=== PATIENT | female | born 2000 | race Caucasian/White ===

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

== ENCOUNTER 2024-05-12 21:16 | Emergency (ER) | payer OTHER ==
--- OUTSIDE RECORDS SUMMARY | 2024-05-12 21:24 | XMS REPORT | Continuity of Care Document ---
Author Name Unknown Address [address] [facility] [address]. [address] [place] [address] [facility] Address [address] [facility] [place] [address] [place] [address] Care Team Providers Care Central Supply Nurse Name Role Phone Ovidio Schneider MD Primary Care Physician [phone] MARIE MELENDEZ Attending Clinician Unavailable MARIE MELENDEZ Attending Clinician Unavailable Piper Rodríguez Attending Clinician [phone] Ovidio Schneider MD Attending Clinician + Beatriz Chu MD Attending Clinician [phone] BEATRIZ CHU Attending Clinician UnavailBEATRIZ Rush Attending Clinician Unavailabl e RABIA PIMENTEL Attending Clinician Unavailable RABIA PIMENTEL Attending Clinician Unavailable Rabia Pimentel MD Attending Clinician [phone] OVIDIO SCHNEIDER Attending Clinician Unavailable Pola MARCIAL Attending Clinician Unavailable Clive PACPola Attending Clinician [phone] Nancy RING, Georgie Broderick Attending Clinician Unav ailable Gaby Malik PTA Attending Clinician Unavail able Beatriz Chu MD Attending Clinician +[phone] Ovidio Schneider MD Attending Clinician + 2, [facility] Attending Clinician Unavailable Mihir Galindo PT, Mckenna Attending Clinician Un available Romina Myers Attending Clinician +[phone] ROMINA SPANGLER Attending Clinician Unavailable YOUSUF SANCHEZ Attending Clinician Unavailab le Doctor Unassigned, [place] Attending Clinician U navailable Lab, [facility] I Attending Clinician Unavailab Luna Carlisle Attending Clinician [phone] LUNA VILLASENOR Attending Clinician Unavailable Elio GAONAP, Renetta Cervantes Attending Clinician + [phone] Piper Rodríguez Attending Clinician [phone] PIPER AVILES Attending Clinician Unavailabl e [place], [facility] Attending Clinician Unava ilable Mily ARCHIVES TECHNICIANLashaun Attending Clinician [phone] Mike Keys Attending Clinician [phone] Anahi Alexander Attending Clinician [phone] RABIA PIMENTEL Admitting Clinician Unavailable YOUSUF SANCHEZ Admitting Clinician Unavailab le Payers Payer Name Policy Type Policy Number Effective Date Expirati on Date Source [facility] [id number] Problems Condition Name Condition Details Condition Category Status Onset Date Resolution Date Last Treatment Date Treating Clinician Comments Source Spasm of thoracic back muscle Spasm of thoracic back muscle Disease Active 2022-03 00:00: 00 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 Chronic upper back pain Chronic upper back pain Disease Active 2022-03 00:00: 00 [facility] Family history of stress Family history of stress Disease Active 2022-03 00:00: 00 [facility] Generalize d anxiety disorder Generalize d anxiety disorder Disease Active 2022-03 00:00: 00 [facility] Acute pain of both shoulders Acute pain of both shoulders Disease Active 2022-03 00:00: 00 [facility] Idiopathic scoliosis of thoracolum bar region Idiopathic scoliosis of thoracolum bar region Disease Active 2022-03 00:00: 00 [facility] Musculoske letal pain Musculoske letal pain Disease Active 2022-03 00:00: 00 [facility] Situationa l anxiety Situationa l anxiety Disease Active 2022-03 00:00: 00 [facility] Psoriasis Psoriasis Disease Active 2019-03 00:00: 00 [facility] Functional heart murmur Functional heart murmur Disease Active 11-18 00:00: 00 [facility] Family history of cardiovasc ular disease Family history of cardiovasc ular disease Disease Active 11-18 00:00: 00 [facility] Acute pharyngiti s Acute pharyngiti s Disease Resolve d 12-08 00:00: 00 2020-02-04 00:00:00 2020-02-04 13:13:06 [facility] Acute serous otitis media Acute serous otitis media Disease Resolve d 12-08 00:00: 00 2020-02-04 00:00:00 2020-02-04 13:13:05 [facility] Acute bronchitis Acute bronchitis Disease Resolve d 12-08 00:00: 00 2020-02-04 00:00:00 2020-02-04 13:13:08 [facility] Other closed fractures of distal end of radius (alone) Other closed fractures of distal end of radius (alone) Disease Resolve d 05-16 00:00: 00 2012-09-03 00:00:00 2012-09-03 10:16:06 [facility] Allergies, Adverse Reactions, Alerts Allergy Name Allergy Type Status Severity Reaction(s) Onset Date Inactive Date Treating Clinician Comments Source NO KNOWN ALLERGIE S Drug Class Active [facility] No Known Drug Allergie s MA Active UNKNOWN [facility] Social History Social Habit Start Date Stop Date Quantity Comments Source History of tobacco use Passive smoker [facility] Sexual orientation [facility] Exposure to SARS-CoV-2 (event) Yes [facility] Alcoholic beverage intake 2023-12-09 00:00:00 2023-12-09 00:00:00 Current non-drinker of alcohol (finding) [facility] History of Social function 2023-12-04 00:00:00 2023-12-04 00:00:00 [facility] Alcohol intake 2023-01-25 00:00:00 2023-01-25 00:00:00 Current non-drinker of alcohol (finding) [facility] Tobacco use and exposure 2023-01-16 00:00:00 2023-01-16 00:00:00 Smokeless tobacco non-user [facility] Sex assigned at 2002 00:00:00 2000 00:00:00 [facility] Smoking Status Start Date Stop Date Source Never smoked tobacco [facility] Medications Ordered Medication Name Filled Medication Name Start Date Stop Date Current Medication? Ordering Clinician Indication Dosage Frequency Signature (SIG) Comments Components Source methylPREDN ISolone (MEDROL, ARMANDO,) 4 mg tablets 12-03 00:00: 00 Yes 84mg Take 21 tablets by mouth SEE-INSTRU CTIONS. follow package directions [facility] HYDROcodone -acetaminop hen (NORCO) 10-325 mg tablet 1 tablet 12-01 13:00: 00 12-01 12:04 :00 No 1{tbl} 1 tablet, Oral, ONCE NOW, 1 dose, On Fri12/02/23 at 0800, Routine [facility] ibuprofen 800 mg tablet 12-01 00:00: 00 Yes [id number] 800mg Take 1 tablet by mouth every 8 (eight) hours as needed for Pain (scale 4-6). [facility] ondansetron (ZOFRAN-ODT ) disintegrat ing tablet 4 mg 03-31 07:15: 00 03-31 06:09 :00 No 4mg 4 mg, Oral, ONCE, 1 dose, On Fri03/31/23 at 0115, Routine [facility] benzonatate (TESSALON PERLES) capsule 200 mg 03-31 06:15: 00 03-31 06:10 :00 No 200mg 200 mg, Oral, ONCE, 1 dose, On Fri03/31/23 at 0015, NATALY [facility] ondansetron 4 mg disintegrat ing tablet 03-31 00:00: 00 Yes [id number] 4mg Take 1 tablet by mouth every 8 (eight) hours as needed for Nausea and Vomiting (N/V). [facility] benzonatate 200 mg capsule 03-31 00:00: 00 Yes [id number] 200mg Take 1 capsule by mouth 3 (three) times daily as needed for Cough for up to [address] [facility] ibuprofen 600 mg tablet 03-31 00:00: 00 Yes [id number] 600mg Take 1 tablet by mouth every 6 (six) hours as needed for Pain (scale 4-6). [facility] XULANE 150-35 mcg/24 hr patch 2022-03 14:50: 29 Yes APPLY 1 PATCH BY TRANSDERMA L ROUTE ONCE WEEKLY FOR 3 WEEKS, REMOVE FOR [address] [facility] Diclofenac Sodium (VOLTAREN) 1 % gel 2022-03 00:00: 00 Yes [id number] Apply to area(s) 4 (four) times daily. Apply [address] [facility] lidocaine 5 % ointment 2022-03 00:00: 00 Yes [id number] Apply 2g to affected areas BID PRN [facility] methocarbam oL 500 mg tablet 2022-03 00:00: 00 Yes [id number] 500mg Take 1 tablet by mouth 4 (four) times daily as needed for Pain (scale 7-10) (Muscle Spasms). [facility] methocarbam oL (ROBAXIN) tablet 1,000 mg 2022-03 17:15: 00 01-15 17:57 :00 No 1000mg 1,000 mg, Oral, ONCE, 1 dose, On Fri01/15/23 at 1215, NATALY [facility] ibuprofen (IBU) tablet 600 mg 2022-03 17:15: 00 01-15 17:57 :00 No 600mg 600 mg, Oral, ONCE, 1 dose, On Fri01/15/23 at 1215, NATALY [facility] ibuprofen 600 mg tablet 2022-03 00:00: 00 Yes [id number] 600mg Take 1 tablet by mouth every 8 (eight) hours as needed for Pain (scale 4-6). [facility] methocarbam oL 750 mg tablet 2022-03 00:00: 00 01-22 00:00 :00 No [id number] 750mg Take 1 tablet by mouth every 6 (six) hours as needed for Pain (scale 7-10). [facility] triamcinolo ne 0.025 % cream 2019-03 00:00: 00 Yes [id number] Apply to area(s) 2 (two) times daily. [facility] salicylic acid 2 % Sham 2019-03 00:00: 00 Yes [id number] 1[oz_av ] Apply 1 oz to area(s) daily. Wash hair daily with shampoo and massage into scalp. [facility] cetirizine 5 mg tablet 10-08 00:00: 00 11-08 04:59 :00 No [id number] 5mg Take 1 tablet by mouth at bedtime as needed for Allergies for up to 30 days. [facility] No known medications No Un zachary ity [facility] No known [facility] No Un zachary ity [facility] No known medications No Un zachary ity [facility] No known medications No Un zachary ity [facility] No known medications No Un zachary ity [facility] No known medications [facility] Immunizations Ordered Immunization Name Filled Immunization Name Date Status Comments Source Influenza Virus Vaccine Quad IM, Preserv and ABX Free 6 MO-64 YRS (FLUCELVAX) 2023-01-22 00:00:00 Completed [facility] HPV9 2020-02-04 00:00:00 Completed [facility] Influenza Virus Vaccine Quad .5 mL IM 6+ MO 2020-02-04 00:00:00 Completed [facility] HPV9 2020-02-04 00:00:00 Completed [facility] Influenza Virus Vaccine Quad .5 mL IM 6+ MO 2020-02-04 00:00:00 Completed [facility] HPV9 2020-02-04 00:00:00 Completed [facility] Influenza Virus Vaccine Quad .5 mL IM 6+ MO (FLUZONE/FLULAVAL/FL UARIX) 2020-02-04 00:00:00 Completed HPV9 2020-02-04 00:00:00 Completed [facility] Influenza Virus Vaccine Quad .5 mL IM 6+ MO 2020-02-04 00:00:00 Completed [facility] HPV9 2020-02-04 00:00:00 Completed [facility] Influenza Virus Vaccine Quad .5 mL IM 6+ MO 2020-02-04 00:00:00 Completed [facility] HPV9 2020-02-04 00:00:00 Completed [facility] Influenza Virus Vaccine Quad .5 mL IM 6+ MO 2020-02-04 00:00:00 Completed [facility] HPV9 2020-02-04 00:00:00 Completed [facility] Influenza Virus Vaccine Quad .5 mL IM 6+ MO 2020-02-04 00:00:00 Completed [facility] HPV9 2020-02-04 00:00:00 Completed [facility] Influenza Virus Vaccine Quad .5 mL IM 6+ MO 2020-02-04 00:00:00 Completed [facility] Influenza Virus Vaccine Quad .5 mL IM 6+ MO 2019-02-08 00:00:00 Completed [facility] Influenza Virus Vaccine Quad .5 mL IM 6+ MO 2019-02-08 00:00:00 Completed [facility] Influenza Virus Vaccine Quad .5 mL IM 6+ MO (FLUZONE/FLULAVAL/FL UARIX) 2019-02-08 00:00:00 Completed Influenza Virus Vaccine Quad .5 mL IM 6+ MO 2019-02-08 00:00:00 Completed [facility] Influenza Virus Vaccine Quad .5 mL IM 6+ MO 2019-02-08 00:00:00 Completed [facility] Influenza Virus Vaccine Quad .5 mL IM 6+ MO 2019-02-08 00:00:00 Completed [facility] Influenza Virus Vaccine Quad .5 mL IM 6+ MO 2019-02-08 00:00:00 Completed [facility] Influenza Virus Vaccine Quad .5 mL IM 6+ MO 2019-02-08 00:00:00 Completed [facility] Influenza Virus Vaccine Quad .5 mL IM 6+ MO 2019-02-08 00:00:00 Completed [facility] Influenza Virus Vaccine Quad .5 mL IM 6+ MO 2019-02-08 00:00:00 Completed [facility] Meningococcal B, OMV 2018-11-20 00:00:00 Completed [facility] HPV9 2018-11-20 00:00:00 Completed [facility] Meningococcal B, OMV 2018-11-20 00:00:00 Completed [facility] HPV9 2018-11-20 00:00:00 Completed [facility] Meningococcal B, OMV 2018-11-20 00:00:00 Completed HPV9 2018-11-20 00:00:00 Completed Meningococcal B, OMV 2018-11-20 00:00:00 Completed [facility] HPV9 2018-11-20 00:00:00 Completed [facility] Meningococcal B, OMV 2018-11-20 00:00:00 Completed [facility] HPV9 2018-11-20 00:00:00 Completed [facility] Meningococcal B, OMV 2018-11-20 00:00:00 Completed [facility] HPV9 2018-11-20 00:00:00 Completed [facility] Meningococcal B, OMV 2018-11-20 00:00:00 Completed [facility] HPV9 2018-11-20 00:00:00 Completed [facility] Meningococcal B, OMV 2018-11-20 00:00:00 Completed [facility] HPV9 2018-11-20 00:00:00 Completed [facility] Meningococcal B, OMV 2018-11-20 00:00:00 Completed [facility] HPV9 2018-11-20 00:00:00 Completed [facility] Meningococcal B, OMV 2018-11-20 00:00:00 Completed [facility] HPV9 2018-11-20 00:00:00 Completed [facility] Meningococcal B, OMV 2018-11-20 00:00:00 Completed [facility] HPV9 2018-11-20 00:00:00 Completed [facility] Meningococcal B, OMV 2018-10-12 00:00:00 Completed [facility] Meningococcal Polysaccharide (groups A, C, Y and W-135) conjugate vaccine (MCV4P) 2018-10-12 00:00:00 Completed [facility] HPV9 2018-10-12 00:00:00 Completed [facility] Meningococcal B, OMV 2018-10-12 00:00:00 Completed [facility] Meningococcal Polysaccharide (groups A, C, Y and W-135) conjugate vaccine (MCV4P) 2018-10-12 00:00:00 Completed [facility] HPV9 2018-10-12 00:00:00 Completed [facility] Meningococcal B, OMV 2018-10-12 00:00:00 Completed Meningococcal Polysaccharide (groups A, C, Y and W-135) conjugate vaccine (MCV4P) 2018-10-12 00:00:00 Completed HPV9 2018-10-12 00:00:00 Completed Meningococcal B, OMV 2018-10-12 00:00:00 Completed [facility] Meningococcal Polysaccharide (groups A, C, Y and W-135) conjugate vaccine (MCV4P) 2018-10-12 00:00:00 Completed [facility] HPV9 2018-10-12 00:00:00 Completed [facility] Meningococcal B, OMV 2018-10-12 00:00:00 Completed [facility] Meningococcal Polysaccharide (groups A, C, Y and W-135) conjugate vaccine (MCV4P) 2018-10-12 00:00:00 Completed [facility] HPV9 2018-10-12 00:00:00 Completed [facility] Meningococcal B, OMV 2018-10-12 00:00:00 Completed [facility] Meningococcal Polysaccharide (groups A, C, Y and W-135) conjugate vaccine (MCV4P) 2018-10-12 00:00:00 Completed [facility] HPV9 2018-10-12 00:00:00 Completed [facility] Meningococcal B, OMV 2018-10-12 00:00:00 Completed [facility] Meningococcal Polysaccharide (groups A, C, Y and W-135) conjugate vaccine (MCV4P) 2018-10-12 00:00:00 Completed [facility] HPV9 2018-10-12 00:00:00 Completed [facility] Meningococcal B, OMV 2018-10-12 00:00:00 Completed [facility] Meningococcal Polysaccharide (groups A, C, Y and W-135) conjugate vaccine (MCV4P) 2018-10-12 00:00:00 Completed [facility] HPV9 2018-10-12 00:00:00 Completed [facility] Meningococcal B, OMV 2018-10-12 00:00:00 Completed [facility] Meningococcal Polysaccharide (groups A, C, Y and W-135) conjugate vaccine (MCV4P) 2018-10-12 00:00:00 Completed [facility] HPV9 2018-10-12 00:00:00 Completed [facility] Meningococcal B, OMV 2018-10-12 00:00:00 Completed [facility] Meningococcal Polysaccharide (groups A, C, Y and W-135) conjugate vaccine (MCV4P) 2018-10-12 00:00:00 Completed [facility] HPV9 2018-10-12 00:00:00 Completed [facility] Meningococcal B, OMV 2018-10-12 00:00:00 Completed [facility] Meningococcal Polysaccharide (groups A, C, Y and W-135) conjugate vaccine (MCV4P) 2018-10-12 00:00:00 Completed [facility] HPV9 2018-10-12 00:00:00 Completed [facility] Meningococcal B, OMV 2018-10-12 00:00:00 Completed [facility] Meningococcal Polysaccharide (groups A, C, Y and W-135) conjugate vaccine (MCV4P) 2018-10-12 00:00:00 Completed [facility] HPV9 2018-10-12 00:00:00 Completed [facility] Meningococcal B, OMV 2018-10-12 00:00:00 Completed [facility] Meningococcal Polysaccharide (groups A, C, Y and W-135) conjugate vaccine (MCV4P) 2018-10-12 00:00:00 Completed [facility] HPV9 2018-10-12 00:00:00 Completed [facility] HEPATITIS A 2018-03-24 00:00:00 Completed [facility] Meningococcal Vaccine 2018-03-24 00:00:00 Completed [facility] HEPATITIS A 2018-03-24 00:00:00 Completed [facility] Meningococcal Vaccine 2018-03-24 00:00:00 Completed [facility] HEPATITIS A 2018-03-24 00:00:00 Completed [facility] Meningococcal Vaccine 2018-03-24 00:00:00 Completed [facility] HEPATITIS A 2018-03-24 00:00:00 Completed [facility] Meningococcal Vaccine 2018-03-24 00:00:00 Completed [facility] HEPATITIS A 2018-03-24 00:00:00 Completed [facility] Meningococcal Vaccine 2018-03-24 00:00:00 Completed HEPATITIS A 2018-03-24 00:00:00 Completed [facility] Meningococcal Vaccine 2018-03-24 00:00:00 Completed [facility] HEPATITIS A 2018-03-24 00:00:00 Completed [facility] Meningococcal Vaccine 2018-03-24 00:00:00 Completed [facility] HEPATITIS A 2018-03-24 00:00:00 Completed [facility] Meningococcal Vaccine 2018-03-24 00:00:00 Completed [facility] HEPATITIS A 2018-03-24 00:00:00 Completed [facility] Meningococcal Vaccine 2018-03-24 00:00:00 Completed [facility] HEPATITIS A 2018-03-24 00:00:00 Completed [facility] Meningococcal Vaccine 2018-03-24 00:00:00 Completed [facility] HEPATITIS A 2018-03-24 00:00:00 Completed [facility] Meningococcal Vaccine 2018-03-24 00:00:00 Completed [facility] HEPATITIS A 2018-03-24 00:00:00 Completed [facility] Meningococcal Vaccine 2018-03-24 00:00:00 Completed [facility] HEPATITIS A 2018-03-24 00:00:00 Completed [facility] Meningococcal Vaccine 2018-03-24 00:00:00 Completed [facility] HEPATITIS A 2018-03-24 00:00:00 Completed [facility] Meningococcal Vaccine 2018-03-24 00:00:00 Completed [facility] HEPATITIS A 2018-03-24 00:00:00 Completed [facility] Meningococcal Vaccine 2018-03-24 00:00:00 Completed [facility] HEPATITIS A 2018-03-24 00:00:00 Completed [facility] Meningococcal Vaccine 2018-03-24 00:00:00 Completed [facility] HEPATITIS A 2018-03-24 00:00:00 Completed [facility] Meningococcal Vaccine 2018-03-24 00:00:00 Completed [facility] TDAP (ADACEL) VACCINE 2014-11-10 00:00:00 Completed [facility] TDAP (ADACEL) VACCINE 2014-11-10 00:00:00 Completed [facility] TDAP (ADACEL) VACCINE 2014-11-10 00:00:00 Completed [facility] TDAP (ADACEL) VACCINE 2014-11-10 00:00:00 Completed [facility] TDAP (ADACEL) VACCINE 2014-11-10 00:00:00 Completed [facility] TDAP (ADACEL) VACCINE 2014-11-10 00:00:00 Completed [facility] TDAP (ADACEL) VACCINE 2014-11-10 00:00:00 Completed [facility] TDAP (ADACEL) VACCINE 2014-11-10 00:00:00 Completed [facility] TDAP (ADACEL) VACCINE 2014-11-10 00:00:00 Completed [facility] TDAP (ADACEL) VACCINE 2014-11-10 00:00:00 Completed [facility] TDAP (ADACEL) VACCINE 2014-11-10 00:00:00 Completed [facility] TDAP (ADACEL) VACCINE 2014-11-10 00:00:00 Completed [facility] TDAP (ADACEL) VACCINE 2014-11-10 00:00:00 Completed [facility] TDAP (ADACEL) VACCINE 2014-11-10 00:00:00 Completed [facility] TDAP (ADACEL) VACCINE 2014-11-10 00:00:00 Completed [facility] TDAP (ADACEL) VACCINE 2014-11-10 00:00:00 Completed [facility] TDAP (ADACEL) VACCINE 2014-11-10 00:00:00 Completed [facility] Influenza Virus Vaccine - Whole 2010-05-04 00:00:00 Completed [facility] Influenza Virus Vaccine - Whole 2010-05-04 00:00:00 Completed [facility] Influenza Virus Vaccine - Whole 2010-05-04 00:00:00 Completed [facility] Influenza Virus Vaccine - Whole 2010-05-04 00:00:00 Completed [facility] Influenza Virus Vaccine - Whole 2010-05-04 00:00:00 Completed [facility] Influenza Virus Vaccine - Whole 2010-05-04 00:00:00 Completed [facility] Influenza Virus Vaccine - Whole 2010-05-04 00:00:00 Completed [facility] Influenza Virus Vaccine - Whole 2010-05-04 00:00:00 Completed [facility] Influenza Virus Vaccine - Whole 2010-05-04 00:00:00 Completed [facility] Influenza Virus Vaccine - Whole 2010-05-04 00:00:00 Completed [facility] Influenza Virus Vaccine - Whole 2010-05-04 00:00:00 Completed [facility] Influenza Virus Vaccine - Whole 2010-05-04 00:00:00 Completed [facility] Influenza Virus Vaccine - Whole 2010-05-04 00:00:00 Completed [facility] Influenza Virus Vaccine - Whole 2010-05-04 00:00:00 Completed [facility] Influenza Virus Vaccine - Whole 2010-05-04 00:00:00 Completed [facility] Influenza Virus Vaccine - Whole 2010-05-04 00:00:00 Completed [facility] Influenza Virus Vaccine - Whole 2010-04-05 00:00:00 Completed [facility] Influenza Virus Vaccine - Whole 2010-04-05 00:00:00 Completed [facility] Influenza Virus Vaccine - Whole 2010-04-05 00:00:00 Completed [facility] Influenza Virus Vaccine - Whole 2010-04-05 00:00:00 Completed [facility] Influenza Virus Vaccine - Whole 2010-04-05 00:00:00 Completed [facility] Influenza Virus Vaccine - Whole 2010-04-05 00:00:00 Completed [facility] Influenza Virus Vaccine - Whole 2010-04-05 00:00:00 Completed [facility] Influenza Virus Vaccine - Whole 2010-04-05 00:00:00 Completed [facility] Influenza Virus Vaccine - Whole 2010-04-05 00:00:00 Completed [facility] Influenza Virus Vaccine - Whole 2010-04-05 00:00:00 Completed [facility] Influenza Virus Vaccine - Whole 2010-04-05 00:00:00 Completed [facility] Influenza Virus Vaccine - Whole 2010-04-05 00:00:00 Completed [facility] Influenza Virus Vaccine - Whole 2010-04-05 00:00:00 Completed [facility] Influenza Virus Vaccine - Whole 2010-04-05 00:00:00 Completed [facility] Influenza Virus Vaccine - Whole 2010-04-05 00:00:00 Completed [facility] Influenza Virus Vaccine - Whole 2010-04-05 00:00:00 Completed [facility] Influenza Virus Vaccine - Whole 2010-04-05 00:00:00 Completed [facility] Influenza Virus Vaccine Quad Nasal 2009-02-02 00:00:00 Completed [facility] Influenza Virus Vaccine Quad Nasal 2009-02-02 00:00:00 Completed [facility] Influenza Virus Vaccine Quad Nasal 2009-02-02 00:00:00 Completed [facility] Influenza Virus Vaccine Quad Nasal 2009-02-02 00:00:00 Completed [facility] Influenza Virus Vaccine Quad Nasal (Flumist) 2009-02-02 00:00:00 Completed Influenza Virus Vaccine Quad Nasal 2009-02-02 00:00:00 Completed [facility] Influenza Virus Vaccine Quad Nasal 2009-02-02 00:00:00 Completed [facility] Influenza Virus Vaccine Quad Nasal 2009-02-02 00:00:00 Completed [facility] Influenza Virus Vaccine Quad Nasal 2009-02-02 00:00:00 Completed [facility] Influenza Virus Vaccine Quad Nasal 2009-02-02 00:00:00 Completed [facility] Influenza Virus Vaccine Quad Nasal 2009-02-02 00:00:00 Completed [facility] Influenza Virus Vaccine Quad Nasal 2009-02-02 00:00:00 Completed [facility] Influenza Virus Vaccine Quad Nasal 2009-02-02 00:00:00 Completed [facility] Influenza Virus Vaccine Quad Nasal 2009-02-02 00:00:00 Completed [facility] Influenza Virus Vaccine Quad Nasal 2009-02-02 00:00:00 Completed [facility] Influenza Virus Vaccine Quad Nasal 2009-02-02 00:00:00 Completed [facility] Influenza Virus Vaccine Quad Nasal 2009-02-02 00:00:00 Completed [facility] MMR 2006-12-14 00:00:00 Completed [facility] HEPATITIS A 2006-12-14 00:00:00 Completed [facility] MMR 2006-12-14 00:00:00 Completed [facility] HEPATITIS A 2006-12-14 00:00:00 Completed [facility] MMR 2006-12-14 00:00:00 Completed [facility] HEPATITIS A 2006-12-14 00:00:00 Completed [facility] MMR 2006-12-14 00:00:00 Completed [facility] HEPATITIS A 2006-12-14 00:00:00 Completed [facility] MMR 2006-12-14 00:00:00 Completed [facility] HEPATITIS A 2006-12-14 00:00:00 Completed MMR 2006-12-14 00:00:00 Completed HEPATITIS A 2006-12-14 00:00:00 Completed [facility] MMR 2006-12-14 00:00:00 Completed [facility] HEPATITIS A 2006-12-14 00:00:00 Completed [facility] MMR 2006-12-14 00:00:00 Completed [facility] HEPATITIS A 2006-12-14 00:00:00 Completed [facility] MMR 2006-12-14 00:00:00 Completed [facility] HEPATITIS A 2006-12-14 00:00:00 Completed [facility] MMR 2006-12-14 00:00:00 Completed [facility] HEPATITIS A 2006-12-14 00:00:00 Completed [facility] MMR 2006-12-14 00:00:00 Completed [facility] HEPATITIS A 2006-12-14 00:00:00 Completed [facility] MMR 2006-12-14 00:00:00 Completed [facility] HEPATITIS A 2006-12-14 00:00:00 Completed [facility] MMR 2006-12-14 00:00:00 Completed [facility] HEPATITIS A 2006-12-14 00:00:00 Completed [facility] MMR 2006-12-14 00:00:00 Completed [facility] HEPATITIS A 2006-12-14 00:00:00 Completed [facility] MMR 2006-12-14 00:00:00 Completed [facility] HEPATITIS A 2006-12-14 00:00:00 Completed [facility] MMR 2006-12-14 00:00:00 Completed [facility] HEPATITIS A 2006-12-14 00:00:00 Completed [facility] MMR 2006-12-14 00:00:00 Completed [facility] HEPATITIS A 2006-12-14 00:00:00 Completed [facility] Varicella (varivax)(chicken pox) 2006-11-07 00:00:00 Completed [facility] DTAP 2006-11-07 00:00:00 Completed [facility] Varicella (varivax)(chicken pox) 2006-11-07 00:00:00 Completed [facility] DTAP 2006-11-07 00:00:00 Completed [facility] Varicella (varivax)(chicken pox) 2006-11-07 00:00:00 Completed [facility] DTAP 2006-11-07 00:00:00 Completed [facility] Varicella (varivax)(chicken pox) 2006-11-07 [facility]:00 Completed Varicella (varivax)(chicken pox) 2006-11-07 00:00:00 Completed [facility] Varicella (varivax)(chicken pox) 2006-11-07 00:00:[facility]:00:00 Completed [facility] Varicella (varivax)(chicken pox) 2006-11-07 00:00:00 Completed [facility] DTAP 2006-11-07 00:00:00 [facility]:00:00 Completed [facility] Varicella (varivax)(chicken pox) 2006-11-07 00:00:[facility]:00:00 Completed [facility] Varicella (varivax)(chicken pox) 2006-11-07 00:00:00 Completed [facility] Varicella (varivax)(chicken pox) 2006-11-07 00:00:00 Completed [facility] DTAP 2006-11-07 00:00:00 Completed [facility] Varicella (varivax)(chicken pox) 2006-11-07 00:00:00 Completed [facility] DTAP 2006-11-07 00:00:00 Completed [facility] Varicella (varivax)(chicken pox) 2006-11-07 00:00:[facility]:00 Completed [facility] Varicella (varivax)(chicken pox) 2006-11-07 00:00:00 Completed [facility] DTAP 2006-11-07 00:00:00 Completed [facility] Varicella (varivax)(chicken pox) 2006-11-07 00:00:00 Completed [facility] DTAP 2006-11-07 00:00:00 Completed [facility] Varicella (varivax)(chicken pox) 2006-11-07 00:00:00 Completed [facility] DTAP 2006-11-07 00:00:00 Completed [facility] Varicella (varivax)(chicken pox) 2006-11-07 00:00:00 Completed [facility] DTAP 2006-11-07 00:00:00 Completed [facility] Varicella (varivax)(chicken pox) 2006-11-07 00:00:00 Completed [facility] DTAP 2006-11-07 00:00:00 Completed [facility] Pneumococcal 7 Conjugate, PCV7 (Prevnar7) 2006-04-15 00:00:00 Completed [facility] Polio (IPV/OPV) 2006-04-15 00:00:00 Completed [facility] Pneumococcal 13 Conjugate, PCV13 (Prevnar 13) 2006-04-15 00:00:00 Completed [facility] Pneumococcal 7 Conjugate, PCV7 (Prevnar7) 2006-04-15 00:00:00 Completed [facility] Polio (IPV/OPV) 2006-04-15 00:00:00 Completed [facility] Pneumococcal 13 Conjugate, PCV13 (Prevnar 13) 2006-04-15 00:00:00 Completed [facility] Pneumococcal 7 Conjugate, PCV7 (Prevnar7) 2006-04-15 00:00:00 Completed [facility] Polio (IPV/OPV) 2006-04-15 00:00:00 Completed [facility] Pneumococcal 13 Conjugate, PCV13 (Prevnar 13) 2006-04-15 00:00:00 Completed [facility] Pneumococcal 7 Conjugate, PCV7 (Prevnar7) 2006-04-15 00:00:00 Completed [facility] Polio (IPV/OPV) 2006-04-15 00:00:00 Completed [facility] Pneumococcal 13 Conjugate, PCV13 (Prevnar 13) 2006-04-15 00:00:00 Completed [facility] Pneumococcal 7 Conjugate, PCV7 (Prevnar7) 2006-04-15 00:00:00 Completed [facility] Polio (IPV/OPV) 2006-04-15 00:00:00 Completed [facility] Pneumococcal 7 Conjugate, PCV7 (Prevnar7) 2006-04-15 00:00:00 Completed [facility] Polio (IPV/OPV) 2006-04-15 00:00:00 Completed Pneumococcal 13 Conjugate, PCV13 (Prevnar 13) 2006-04-15 00:00:00 Completed Pneumococcal 13 Conjugate, PCV13 (Prevnar 13) 2006-04-15 00:00:00 Completed [facility] Pneumococcal 7 Conjugate, PCV7 (Prevnar7) 2006-04-15 00:00:00 Completed [facility] Polio (IPV/OPV) 2006-04-15 00:00:00 Completed [facility] Pneumococcal 13 Conjugate, PCV13 (Prevnar 13) 2006-04-15 00:00:00 Completed [facility] Pneumococcal 7 Conjugate, PCV7 (Prevnar7) 2006-04-15 00:00:00 Completed [facility] Polio (IPV/OPV) 2006-04-15 00:00:00 Completed [facility] Pneumococcal 13 Conjugate, PCV13 (Prevnar 13) 2006-04-15 00:00:00 Completed [facility] Pneumococcal 7 Conjugate, PCV7 (Prevnar7) 2006-04-15 00:00:00 Completed [facility] Polio (IPV/OPV) 2006-04-15 00:00:00 Completed [facility] Pneumococcal 13 Conjugate, PCV13 (Prevnar 13) 2006-04-15 00:00:00 Completed [facility] Pneumococcal 7 Conjugate, PCV7 (Prevnar7) 2006-04-15 00:00:00 Completed [facility] Polio (IPV/OPV) 2006-04-15 00:00:00 Completed [facility] Pneumococcal 7 Conjugate, PCV7 (Prevnar7) 2006-04-15 00:00:00 Completed [facility] Polio (IPV/OPV) 2006-04-15 00:00:00 Completed [facility] Pneumococcal 13 Conjugate, PCV13 (Prevnar 13) 2006-04-15 00:00:00 Completed [facility] Pneumococcal 13 Conjugate, PCV13 (Prevnar 13) 2006-04-15 00:00:00 Completed [facility] Pneumococcal 7 Conjugate, PCV7 (Prevnar7) 2006-04-15 00:00:00 Completed [facility] Polio (IPV/OPV) 2006-04-15 00:00:00 Completed [facility] Pneumococcal 13 Conjugate, PCV13 (Prevnar 13) 2006-04-15 00:00:00 Completed [facility] Pneumococcal 7 Conjugate, PCV7 (Prevnar7) 2006-04-15 00:00:00 Completed [facility] Polio (IPV/OPV) 2006-04-15 00:00:00 Completed [facility] Pneumococcal 13 Conjugate, PCV13 (Prevnar 13) 2006-04-15 00:00:00 Completed [facility] Pneumococcal 7 Conjugate, PCV7 (Prevnar7) 2006-04-15 00:00:00 Completed [facility] Polio (IPV/OPV) 2006-04-15 00:00:00 Completed [facility] Pneumococcal 13 Conjugate, PCV13 (Prevnar 13) 2006-04-15 00:00:00 Completed [facility] Pneumococcal 7 Conjugate, PCV7 (Prevnar7) 2006-04-15 00:00:00 Completed [facility] Polio (IPV/OPV) 2006-04-15 00:00:00 Completed [facility] Pneumococcal 13 Conjugate, PCV13 (Prevnar 13) 2006-04-15 00:00:00 Completed [facility] Pneumococcal 7 Conjugate, PCV7 (Prevnar7) 2006-04-15 00:00:00 Completed [facility] Polio (IPV/OPV) 2006-04-15 00:00:00 Completed [facility] Pneumococcal 13 Conjugate, PCV13 (Prevnar 13) 2006-04-15 00:00:00 Completed [facility] Pneumococcal 7 Conjugate, PCV7 (Prevnar7) 2006-04-15 00:00:00 Completed [facility] Polio (IPV/OPV) 2006-04-15 00:00:00 Completed [facility] Pneumococcal 13 Conjugate, PCV13 (Prevnar 13) 2006-04-15 00:00:00 Completed [facility] Pneumococcal 7 Conjugate, PCV7 (Prevnar7) 2005-02-16 00:00:00 Completed [facility] HEPATITIS A 2005-02-16 00:00:00 Completed [facility] Pneumococcal 7 Conjugate, PCV7 (Prevnar7) 2005-02-16 00:00:00 Completed [facility] HEPATITIS A 2005-02-16 00:00:00 Completed [facility] Pneumococcal 7 Conjugate, PCV7 (Prevnar7) 2005-02-16 00:00:00 Completed [facility] HEPATITIS A 2005-02-16 00:00:00 Completed [facility] Pneumococcal 7 Conjugate, PCV7 (Prevnar7) 2005-02-16 00:00:00 Completed [facility] HEPATITIS A 2005-02-16 00:00:00 Completed [facility] Pneumococcal 7 Conjugate, PCV7 (Prevnar7) 2005-02-16 00:00:00 Completed [facility] HEPATITIS A 2005-02-16 00:00:00 Completed Pneumococcal 7 Conjugate, PCV7 (Prevnar7) 2005-02-16 00:00:00 Completed HEPATITIS A 2005-02-16 00:00:00 Completed [facility] Pneumococcal 7 Conjugate, PCV7 (Prevnar7) 2005-02-16 00:00:00 Completed [facility] HEPATITIS A 2005-02-16 00:00:00 Completed [facility] Pneumococcal 7 Conjugate, PCV7 (Prevnar7) 2005-02-16 00:00:00 Completed [facility] HEPATITIS A 2005-02-16 00:00:00 Completed [facility] HEPATITIS A 2005-02-16 00:00:00 Completed [facility] Pneumococcal 7 Conjugate, PCV7 (Prevnar7) 2005-02-16 00:00:00 Completed [facility] Pneumococcal 7 Conjugate, PCV7 (Prevnar7) 2005-02-16 00:00:00 Completed [facility] HEPATITIS A 2005-02-16 00:00:00 Completed [facility] Pneumococcal 7 Conjugate, PCV7 (Prevnar7) 2005-02-16 00:00:00 Completed [facility] HEPATITIS A 2005-02-16 00:00:00 Completed [facility] Pneumococcal 7 Conjugate, PCV7 (Prevnar7) 2005-02-16 00:00:00 Completed [facility] HEPATITIS A 2005-02-16 00:00:00 Completed [facility] Pneumococcal 7 Conjugate, PCV7 (Prevnar7) 2005-02-16 00:00:00 Completed [facility] HEPATITIS A 2005-02-16 00:00:00 Completed [facility] Pneumococcal 7 Conjugate, PCV7 (Prevnar7) 2005-02-16 00:00:00 Completed [facility] HEPATITIS A 2005-02-16 00:00:00 Completed [facility] Pneumococcal 7 Conjugate, PCV7 (Prevnar7) 2005-02-16 00:00:00 Completed [facility] HEPATITIS A 2005-02-16 00:00:00 Completed [facility] Pneumococcal 7 Conjugate, PCV7 (Prevnar7) 2005-02-16 00:00:00 Completed [facility] HEPATITIS A 2005-02-16 00:00:00 Completed [facility] Pneumococcal 7 Conjugate, PCV7 (Prevnar7) 2005-02-16 00:00:00 Completed [facility] HEPATITIS A 2005-02-16 00:00:00 Completed [facility] DTAP 2003-08-24 00:00:00 Completed [facility] HIB 4 Dose Schedule 2003-08-24 00:00:00 Completed [facility] DTAP 2003-08-24 00:00:00 Completed [facility] HIB 4 Dose Schedule 2003-08-24 00:00:00 Completed [facility] DTAP 2003-08-24 00:00:00 Completed [facility] HIB 4 Dose Schedule 2003-08-24 00:00:00 Completed [facility] DTAP 2003-08-24 00:00:00 Completed [facility] HIB 4 Dose Schedule 2003-08-24 00:00:00 Completed [facility] DTAP 2003-08-24 00:00:00 Completed HIB 4 Dose Schedule 2003-08-24 00:00:00 Completed DTAP 2003-08-24 00:00:00 Completed [facility] HIB 4 Dose Schedule 2003-08-24 00:00:00 Completed [facility] DTAP 2003-08-24 00:00:00 Completed [facility] DTAP 2003-08-24 00:00:00 Completed [facility] HIB 4 Dose Schedule 2003-08-24 00:00:00 Completed [facility] HIB 4 Dose Schedule 2003-08-24 00:00:00 Completed [facility] DTAP 2003-08-24 00:00:00 Completed [facility] HIB 4 Dose Schedule 2003-08-24 00:00:00 Completed [facility] DTAP 2003-08-24 00:00:00 Completed [facility] HIB 4 Dose Schedule 2003-08-24 00:00:00 Completed [facility] DTAP 2003-08-24 00:00:00 Completed [facility] HIB 4 Dose Schedule 2003-08-24 00:00:00 Completed [facility] DTAP 2003-08-24 00:00:00 Completed [facility] HIB 4 Dose Schedule 2003-08-24 00:00:00 Completed [facility] DTAP 2003-08-24 00:00:00 Completed [facility] HIB 4 Dose Schedule 2003-08-24 00:00:00 Completed [facility] DTAP 2003-08-24 00:00:00 Completed [facility] HIB 4 Dose Schedule 2003-08-24 00:00:00 Completed [facility] DTAP 2003-08-24 00:00:00 Completed [facility] HIB 4 Dose Schedule 2003-08-24 00:00:00 Completed [facility] DTAP 2003-08-24 00:00:00 Completed [facility] HIB 4 Dose Schedule 2003-08-24 00:00:00 Completed [facility] DTAP 2003-08-24 00:00:00 Completed [facility] HIB 4 Dose Schedule 2003-08-24 00:00:00 Completed [facility] MMR 2003-07-07 00:00:00 Completed [facility] Varicella (varivax)(chicken pox) 2003-07-07 00:00:00 Completed [facility] MMR 2003-07-07 00:00:00 Completed [facility] Varicella (varivax)(chicken pox) 2003-07-07 00:00:00 Completed [facility] MMR 2003-07-07 00:00:00 Completed [facility] Varicella (varivax)(chicken pox) 2003-07-07 00:00:00 Completed [facility] MMR 2003-07-07 00:00:00 Completed [facility] Varicella (varivax)(chicken pox) 2003-07-07 00:00:00 Completed [facility] MMR 2003-07-07 00:00:00 Completed [facility] MMR 2003-07-07 00:00:00 Completed Varicella (varivax)(chicken pox) 2003-07-07 00:00:00 Completed [facility] Varicella (varivax)(chicken pox) 2003-07-07 00:00:00 Completed MMR 2003-07-07 00:00:00 Completed [facility] Varicella (varivax)(chicken pox) 2003-07-07 00:00:00 Completed [facility] MMR 2003-07-07 00:00:00 Completed [facility] Varicella (varivax)(chicken pox) 2003-07-07 00:00:00 Completed [facility] MMR 2003-07-07 00:00:00 Completed [facility] 2003-07-07 00:00:00 Completed [facility] Varicella (varivax)(chicken pox) 2003-07-07 00:00:00 Completed [facility] Varicella (varivax)(chicken pox) 2003-07-07 00:00:00 Completed [facility] 2003-07-07 00:00:00 Completed [facility] Varicella (varivax)(chicken pox) 2003-07-07 00:00:00 Completed [facility] 2003-07-07 00:00:00 Completed [facility] Varicella (varivax)(chicken pox) 2003-07-07 00:00:00 Completed [facility] MMR 2003-07-07 00:00:00 Completed [facility] Varicella (varivax)(chicken pox) 2003-07-07 00:00:00 Completed [facility] MMR 2003-07-07 00:00:00 Completed [facility] Varicella (varivax)(chicken pox) 2003-07-07 00:00:00 Completed [facility] MMR 2003-07-07 00:00:00 Completed [facility] Varicella (varivax)(chicken pox) 2003-07-07 00:00:00 Completed [facility] 2003-07-07 00:00:00 Completed [facility] Varicella (varivax)(chicken pox) 2003-07-07 00:00:00 Completed [facility] MMR 2003-07-07 00:00:00 Completed [facility] Varicella (varivax)(chicken pox) 2003-07-07 00:00:00 Completed [facility] Pneumococcal 7 Conjugate, PCV7 (Prevnar7) 2003-01-04 00:00:00 Completed [facility] Pneumococcal 13 Conjugate, PCV13 (Prevnar 13) 2003-01-04 00:00:00 Completed [facility] HIB 4 Dose Schedule 2003-01-04 00:00:00 Completed [facility] Hep B, Adol or Pedi Dosage 2003-01-04 00:00:00 Completed [facility] Pneumococcal 7 Conjugate, PCV7 (Prevnar7) 2003-01-04 00:00:00 Completed [facility] Pneumococcal 13 Conjugate, PCV13 (Prevnar 13) 2003-01-04 00:00:00 Completed [facility] HIB 4 Dose Schedule 2003-01-04 00:00:00 Completed [facility] Hep B, Adol or Pedi Dosage 2003-01-04 00:00:00 Completed [facility] Pneumococcal 7 Conjugate, PCV7 (Prevnar7) 2003-01-04 00:00:00 Completed [facility] Pneumococcal 13 Conjugate, PCV13 (Prevnar 13) 2003-01-04 00:00:00 Completed [facility] HIB 4 Dose Schedule 2003-01-04 00:00:00 Completed [facility] Hep B, Adol or Pedi Dosage 2003-01-04 00:00:00 Completed [facility] Pneumococcal 7 Conjugate, PCV7 (Prevnar7) 2003-01-04 00:00:00 Completed [facility] Pneumococcal 13 Conjugate, PCV13 (Prevnar 13) 2003-01-04 00:00:00 Completed [facility] HIB 4 Dose Schedule 2003-01-04 00:00:00 Completed [facility] Hep B, Adol or Pedi Dosage 2003-01-04 00:00:00 Completed [facility] Pneumococcal 7 Conjugate, PCV7 (Prevnar7) 2003-01-04 00:00:00 Completed [facility] Pneumococcal 13 Conjugate, PCV13 (Prevnar 13) 2003-01-04 00:00:00 Completed [facility] HIB 4 Dose Schedule 2003-01-04 00:00:00 Completed [facility] Hep B, Adol or Pedi Dosage 2003-01-04 00:00:00 Completed [facility] Pneumococcal 7 Conjugate, PCV7 (Prevnar7) 2003-01-04 00:00:00 Completed [facility] HIB 4 Dose Schedule 2003-01-04 00:00:00 Completed [facility] Hep B, Adol or Pedi Dosage 2003-01-04 00:00:00 Completed [facility] Pneumococcal 7 Conjugate, PCV7 (Prevnar7) 2003-01-04 00:00:00 Completed [facility] Pneumococcal 13 Conjugate, PCV13 (Prevnar 13) 2003-01-04 00:00:00 Completed Pneumococcal 13 Conjugate, PCV13 (Prevnar 13) 2003-01-04 00:00:00 Completed [facility] HIB 4 Dose Schedule 2003-01-04 00:00:00 Completed [facility] Hep B, Adol or Pedi Dosage 2003-01-04 00:00:00 Completed [facility] Pneumococcal 7 Conjugate, PCV7 (Prevnar7) 2003-01-04 00:00:00 Completed [facility] Pneumococcal 13 Conjugate, PCV13 (Prevnar 13) 2003-01-04 00:00:00 Completed [facility] HIB 4 Dose Schedule 2003-01-04 00:00:00 Completed [facility] HIB 4 Dose Schedule 2003-01-04 00:00:00 Completed [facility] Hep B, Adol or Pedi Dosage 2003-01-04 00:00:00 Completed [facility] Pneumococcal 7 Conjugate, PCV7 (Prevnar7) 2003-01-04 00:00:00 Completed [facility] Pneumococcal 13 Conjugate, PCV13 (Prevnar 13) 2003-01-04 00:00:00 Completed [facility] Hep B, Adol or Pedi Dosage 2003-01-04 00:00:00 Completed [facility] HIB 4 Dose Schedule 2003-01-04 00:00:00 Completed [facility] Hep B, Adol or Pedi Dosage 2003-01-04 00:00:00 Completed [facility] Pneumococcal 7 Conjugate, PCV7 (Prevnar7) 2003-01-04 00:00:00 Completed [facility] Pneumococcal 7 Conjugate, PCV7 (Prevnar7) 2003-01-04 00:00:00 Completed [facility] Pneumococcal 13 Conjugate, PCV13 (Prevnar 13) 2003-01-04 00:00:00 Completed [facility] HIB 4 Dose Schedule 2003-01-04 00:00:00 Completed [facility] Hep B, Adol or Pedi Dosage 2003-01-04 00:00:00 Completed [facility] Pneumococcal 13 Conjugate, PCV13 (Prevnar 13) 2003-01-04 00:00:00 Completed [facility] Pneumococcal 7 Conjugate, PCV7 (Prevnar7) 2003-01-04 00:00:00 Completed [facility] Pneumococcal 13 Conjugate, PCV13 (Prevnar 13) 2003-01-04 00:00:00 Completed [facility] HIB 4 Dose Schedule 2003-01-04 00:00:00 Completed [facility] Hep B, Adol or Pedi Dosage 2003-01-04 00:00:00 Completed [facility] Pneumococcal 7 Conjugate, PCV7 (Prevnar7) 2003-01-04 00:00:00 Completed [facility] Pneumococcal 13 Conjugate, PCV13 (Prevnar 13) 2003-01-04 00:00:00 Completed [facility] HIB 4 Dose Schedule 2003-01-04 00:00:00 Completed [facility] Hep B, Adol or Pedi Dosage 2003-01-04 00:00:00 Completed [facility] Pneumococcal 7 Conjugate, PCV7 (Prevnar7) 2003-01-04 00:00:00 Completed [facility] Pneumococcal 13 Conjugate, PCV13 (Prevnar 13) 2003-01-04 00:00:00 Completed [facility] HIB 4 Dose Schedule 2003-01-04 00:00:00 Completed [facility] Hep B, Adol or Pedi Dosage 2003-01-04 00:00:00 Completed [facility] Pneumococcal 7 Conjugate, PCV7 (Prevnar7) 2003-01-04 00:00:00 Completed [facility] Pneumococcal 13 Conjugate, PCV13 (Prevnar 13) 2003-01-04 00:00:00 Completed [facility] HIB 4 Dose Schedule 2003-01-04 00:00:00 Completed [facility] Hep B, Adol or Pedi Dosage 2003-01-04 00:00:00 Completed [facility] Pneumococcal 7 Conjugate, PCV7 (Prevnar7) 2003-01-04 00:00:00 Completed [facility] Pneumococcal 13 Conjugate, PCV13 (Prevnar 13) 2003-01-04 00:00:00 Completed [facility] HIB 4 Dose Schedule 2003-01-04 00:00:00 Completed [facility] Hep B, Adol or Pedi Dosage 2003-01-04 00:00:00 Completed [facility] Pneumococcal 7 Conjugate, PCV7 (Prevnar7) 2003-01-04 00:00:00 Completed [facility] Pneumococcal 13 Conjugate, PCV13 (Prevnar 13) 2003-01-04 00:00:00 Completed [facility] HIB 4 Dose Schedule 2003-01-04 00:00:00 Completed [facility] Hep B, Adol or Pedi Dosage 2003-01-04 00:00:00 Completed [facility] Pneumococcal 7 Conjugate, PCV7 (Prevnar7) 2002 00:00:00 Completed [facility] Polio (IPV/OPV) 2002 00:00:00 Completed [facility] Pneumococcal 13 Conjugate, PCV13 (Prevnar 13) 2002 00:00:00 Completed [facility] DTAP 2002 00:00:00 Completed [facility] HIB 4 Dose Schedule 2002 00:00:00 Completed [facility] Hep B, Adol or Pedi Dosage 2002 00:00:00 Completed [facility] Pneumococcal 7 Conjugate, PCV7 (Prevnar7) 2002 00:00:00 Completed [facility] Polio (IPV/OPV) 2002 00:00:00 Completed [facility] Pneumococcal 13 Conjugate, PCV13 (Prevnar 13) 2002 00:00:00 Completed [facility] DTAP 2002 00:00:00 Completed [facility] HIB 4 Dose Schedule 2002 00:00:00 Completed [facility] Hep B, Adol or Pedi Dosage 2002 00:00:00 Completed [facility] Pneumococcal 7 Conjugate, PCV7 (Prevnar7) 2002 00:00:00 Completed [facility] Polio (IPV/OPV) 2002 00:00:00 Completed [facility] Pneumococcal 13 Conjugate, PCV13 (Prevnar 13) 2002 00:00:00 Completed [facility] DTAP 2002 00:00:00 Completed [facility] HIB 4 Dose Schedule 2002 00:00:00 Completed [facility] Hep B, Adol or Pedi Dosage 2002 00:00:00 Completed [facility] Pneumococcal 7 Conjugate, PCV7 (Prevnar7) 2002 00:00:00 Completed [facility] Polio (IPV/OPV) 2002 00:00:00 Completed [facility] Pneumococcal 13 Conjugate, PCV13 (Prevnar 13) 2002 00:00:00 Completed [facility] DTAP 2002 00:00:00 Completed [facility] HIB 4 Dose Schedule 2002 00:00:00 Completed [facility] Hep B, Adol or Pedi Dosage 2002 00:00:00 Completed [facility] Pneumococcal 7 Conjugate, PCV7 (Prevnar7) 2002 00:00:00 Completed [facility] Polio (IPV/OPV) 2002 00:00:00 Completed [facility] DTAP 2002 00:00:00 Completed HIB 4 Dose Schedule 2002 00:00:00 Completed [facility] Hep B, Adol or Pedi Dosage 2002 00:00:00 Completed [facility] Pneumococcal 7 Conjugate, PCV7 (Prevnar7) 2002 00:00:00 Completed [facility] Polio (IPV/OPV) 2002 00:00:00 Completed Pneumococcal 13 Conjugate, PCV13 (Prevnar 13) 2002 00:00:00 Completed Pneumococcal 13 Conjugate, PCV13 (Prevnar 13) 2002 00:00:00 Completed [facility] DTAP 2002 00:00:00 Completed [facility] HIB 4 Dose Schedule 2002 00:00:00 Completed [facility] DTAP 2002 00:00:00 Completed [facility] Hep B, Adol or Pedi Dosage 2002 00:00:00 Completed [facility] Pneumococcal 7 Conjugate, PCV7 (Prevnar7) 2002 00:00:00 Completed [facility] Polio (IPV/OPV) 2002 00:00:00 Completed [facility] Pneumococcal 13 Conjugate, PCV13 (Prevnar 13) 2002 00:00:00 Completed [facility] HIB 4 Dose Schedule 2002 00:00:00 Completed [facility] DTAP 2002 00:00:00 Completed [facility] HIB 4 Dose Schedule 2002 00:00:00 Completed [facility] Hep B, Adol or Pedi Dosage 2002 00:00:00 Completed [facility] Pneumococcal 7 Conjugate, PCV7 (Prevnar7) 2002 00:00:00 Completed [facility] Polio (IPV/OPV) 2002 00:00:00 Completed [facility] Pneumococcal 13 Conjugate, PCV13 (Prevnar 13) 2002 00:00:00 Completed [facility] Hep B, Adol or Pedi Dosage 2002 00:00:00 Completed [facility] DTAP 2002 00:00:00 Completed [facility] HIB 4 Dose Schedule 2002 00:00:00 Completed [facility] Pneumococcal 7 Conjugate, PCV7 (Prevnar7) 2002 00:00:00 Completed [facility] Hep B, Adol or Pedi Dosage 2002 00:00:00 Completed [facility] Pneumococcal 7 Conjugate, PCV7 (Prevnar7) 2002 00:00:00 Completed [facility] Polio (IPV/OPV) 2002 00:00:00 Completed [facility] Pneumococcal 13 Conjugate, PCV13 (Prevnar 13) 2002 00:00:00 Completed [facility] Polio (IPV/OPV) 2002 00:00:00 Completed [facility] DTAP 2002 00:00:00 Completed [facility] Pneumococcal 13 Conjugate, PCV13 (Prevnar 13) 2002 00:00:00 Completed [facility] HIB 4 Dose Schedule 2002 00:00:00 Completed [facility] Hep B, Adol or Pedi Dosage 2002 00:00:00 Completed [facility] Pneumococcal 7 Conjugate, PCV7 (Prevnar7) 2002 00:00:00 Completed [facility] Polio (IPV/OPV) 2002 00:00:00 Completed [facility] Pneumococcal 13 Conjugate, PCV13 (Prevnar 13) 2002 00:00:00 Completed [facility] DTAP 2002 00:00:00 Completed [facility] HIB 4 Dose Schedule 2002 00:00:00 Completed [facility] Hep B, Adol or Pedi Dosage 2002 00:00:00 Completed [facility] Pneumococcal 7 Conjugate, PCV7 (Prevnar7) 2002 00:00:00 Completed [facility] Polio (IPV/OPV) 2002 00:00:00 Completed [facility] Pneumococcal 13 Conjugate, PCV13 (Prevnar 13) 2002 00:00:00 Completed [facility] DTAP 2002 00:00:00 Completed [facility] HIB 4 Dose Schedule 2002 00:00:00 Completed [facility] Hep B, Adol or Pedi Dosage 2002 00:00:00 Completed [facility] Pneumococcal 7 Conjugate, PCV7 (Prevnar7) 2002 00:00:00 Completed [facility] Polio (IPV/OPV) 2002 00:00:00 Completed [facility] Pneumococcal 13 Conjugate, PCV13 (Prevnar 13) 2002 00:00:00 Completed [facility] DTAP 2002 00:00:00 Completed [facility] HIB 4 Dose Schedule 2002 00:00:00 Completed [facility] Hep B, Adol or Pedi Dosage 2002 00:00:00 Completed [facility] Pneumococcal 7 Conjugate, PCV7 (Prevnar7) 2002 00:00:00 Completed [facility] Polio (IPV/OPV) 2002 00:00:00 Completed [facility] Pneumococcal 13 Conjugate, PCV13 (Prevnar 13) 2002 00:00:00 Completed [facility] DTAP 2002 00:00:00 Completed [facility] HIB 4 Dose Schedule 2002 00:00:00 Completed [facility] Hep B, Adol or Pedi Dosage 2002 00:00:00 Completed [facility] Pneumococcal 7 Conjugate, PCV7 (Prevnar7) 2002 00:00:00 Completed [facility] Polio (IPV/OPV) 2002 00:00:00 Completed [facility] Pneumococcal 13 Conjugate, PCV13 (Prevnar 13) 2002 00:00:00 Completed [facility] DTAP 2002 00:00:00 Completed [facility] HIB 4 Dose Schedule 2002 00:00:00 Completed [facility] Hep B, Adol or Pedi Dosage 2002 00:00:00 Completed [facility] Pneumococcal 7 Conjugate, PCV7 (Prevnar7) 2002 00:00:00 Completed [facility] Polio (IPV/OPV) 2002 00:00:00 Completed [facility] Pneumococcal 13 Conjugate, PCV13 (Prevnar 13) 2002 00:00:00 Completed [facility] DTAP 2002 00:00:00 Completed [facility] HIB 4 Dose Schedule 2002 00:00:00 Completed [facility] Hep B, Adol or Pedi Dosage 2002 00:00:00 Completed [facility] Pneumococcal 7 Conjugate, PCV7 (Prevnar7) 2002 00:00:00 Completed [facility] Polio (IPV/OPV) 2002 00:00:00 Completed [facility] Pneumococcal 13 Conjugate, PCV13 (Prevnar 13) 2002 00:00:00 Completed [facility] DTAP 2002 00:00:00 Completed [facility] HIB 4 Dose Schedule 2002 00:00:00 Completed [facility] Hep B, Adol or Pedi Dosage 2002 00:00:00 Completed [facility] Polio (IPV/OPV) 2002 00:00:00 Completed [facility] Hep B, Adol or Pedi Dosage 2002 00:00:00 Completed [facility] DTAP 2002 00:00:00 Completed [facility] Polio (IPV/OPV) 2002 00:00:00 Completed [facility] Hep B, Adol or Pedi Dosage 2002 00:00:00 Completed [facility] DTAP 2002 00:00:00 Completed [facility] Polio (IPV/OPV) 2002 00:00:00 Completed [facility] Hep B, Adol or Pedi Dosage 2002 00:00:00 Completed [facility] DTAP 2002 00:00:00 Completed [facility] Polio (IPV/OPV) 2002 00:00:00 Completed [facility] Hep B, Adol or Pedi Dosage 2002 00:00:00 Completed [facility] DTAP 2002 00:00:00 Completed [facility] Polio (IPV/OPV) 2002 00:00:00 Completed [facility] DTAP 2002 00:00:00 Completed Polio (IPV/OPV) 2002 00:00:00 Completed Hep B, Adol or Pedi Dosage 2002 00:00:00 Completed [facility] Hep B, Adol or Pedi Dosage 2002 00:00:00 Completed [facility] DTAP 2002 00:00:00 Completed [facility] DTAP 2002 00:00:00 Completed [facility] Polio (IPV/OPV) 2002 00:00:00 Completed [facility] Hep B, Adol or Pedi Dosage 2002 00:00:00 Completed [facility] DTAP 2002 00:00:00 Completed [facility] Polio (IPV/OPV) 2002 00:00:00 Completed [facility] Hep B, Adol or Pedi Dosage 2002 00:00:00 Completed [facility] DTAP 2002 00:00:00 Completed [facility] Polio (IPV/OPV) 2002 00:00:00 Completed [facility] Hep B, Adol or Pedi Dosage 2002 00:00:00 Completed [facility] Polio (IPV/OPV) 2002 00:00:00 Completed [facility] Hep B, Adol or Pedi Dosage 2002 00:00:00 Completed [facility] DTAP 2002 00:00:00 Completed [facility] Polio (IPV/OPV) 2002 00:00:00 Completed [facility] Hep B, Adol or Pedi Dosage 2002 00:00:00 Completed [facility] DTAP 2002 00:00:00 Completed [facility] Polio (IPV/OPV) 2002 00:00:00 Completed [facility] Hep B, Adol or Pedi Dosage 2002 00:00:00 Completed [facility] DTAP 2002 00:00:00 Completed [facility] Polio (IPV/OPV) 2002 00:00:00 Completed [facility] Hep B, Adol or Pedi Dosage 2002 00:00:00 Completed [facility] DTAP 2002 00:00:00 Completed [facility] Polio (IPV/OPV) 2002 00:00:00 Completed [facility] Hep B, Adol or Pedi Dosage 2002 00:00:00 Completed [facility] DTAP 2002 00:00:00 Completed [facility] Polio (IPV/OPV) 2002 00:00:00 Completed [facility] Hep B, Adol or Pedi Dosage 2002 00:00:00 Completed [facility] DTAP 2002 00:00:00 Completed [facility] Polio (IPV/OPV) 2002 00:00:00 Completed [facility] Hep B, Adol or Pedi Dosage 2002 00:00:00 Completed [facility] DTAP 2002 00:00:00 Completed [facility] Polio (IPV/OPV) 2002 00:00:00 Completed [facility] Hep B, Adol or Pedi Dosage 2002 00:00:00 Completed [facility] DTAP 2002 00:00:00 Completed [facility] Polio (IPV/OPV) 2002 00:00:00 Completed [facility] DTAP 2002 00:00:00 Completed [facility] HIB 4 Dose Schedule 2002 00:00:00 Completed [facility] Polio (IPV/OPV) 2002 00:00:00 Completed [facility] DTAP 2002 00:00:00 Completed [facility] HIB 4 Dose Schedule 2002 00:00:00 Completed [facility] Polio (IPV/OPV) 2002 00:00:00 Completed [facility] DTAP 2002 00:00:00 Completed [facility] HIB 4 Dose Schedule 2002 00:00:00 Completed [facility] Polio (IPV/OPV) 2002 00:00:00 Completed [facility] DTAP 2002 00:00:00 Completed [facility] HIB 4 Dose Schedule 2002 00:00:00 Completed [facility] Polio (IPV/OPV) 2002 00:00:00 Completed [facility] DTAP 2002 00:00:00 Completed [facility] HIB 4 Dose Schedule 2002 00:00:00 Completed [facility] Polio (IPV/OPV) 2002 00:00:00 Completed DTAP 2002 00:00:00 Completed [facility] DTAP 2002 00:00:00 Completed [facility] HIB 4 Dose Schedule 2002 00:00:00 Completed [facility] Polio (IPV/OPV) 2002 00:00:00 Completed [facility] HIB 4 Dose Schedule 2002 00:00:00 Completed [facility] DTAP 2002 00:00:00 Completed [facility] HIB 4 Dose Schedule 2002 00:00:00 Completed [facility] Polio (IPV/OPV) 2002 00:00:00 Completed [facility] DTAP 2002 00:00:00 Completed [facility] HIB 4 Dose Schedule 2002 00:00:00 Completed [facility] Polio (IPV/OPV) 2002 00:00:00 Completed [facility] Polio (IPV/OPV) 2002 00:00:00 Completed [facility] DTAP 2002 00:00:00 Completed [facility] HIB 4 Dose Schedule 2002 00:00:00 Completed [facility] Polio (IPV/OPV) 2002 00:00:00 Completed [facility] DTAP 2002 00:00:00 Completed [facility] HIB 4 Dose Schedule 2002 00:00:00 Completed [facility] Polio (IPV/OPV) 2002 00:00:00 Completed [facility] DTAP 2002 00:00:00 Completed [facility] HIB 4 Dose Schedule 2002 00:00:00 Completed [facility] Polio (IPV/OPV) 2002 00:00:00 Completed [facility] DTAP 2002 00:00:00 Completed [facility] HIB 4 Dose Schedule 2002 00:00:00 Completed [facility] Polio (IPV/OPV) 2002 00:00:00 Completed [facility] DTAP 2002 00:00:00 Completed [facility] HIB 4 Dose Schedule 2002 00:00:00 Completed [facility] Polio (IPV/OPV) 2002 00:00:00 Completed [facility] DTAP 2002 00:00:00 Completed [facility] HIB 4 Dose Schedule 2002 00:00:00 Completed [facility] Polio (IPV/OPV) 2002 00:00:00 Completed [facility] DTAP 2002 00:00:00 Completed [facility] HIB 4 Dose Schedule 2002 00:00:00 Completed [facility] Polio (IPV/OPV) 2002 00:00:00 Completed [facility] DTAP 2002 00:00:00 Completed [facility] HIB 4 Dose Schedule 2002 00:00:00 Completed [facility] Hep B, Adol or Pedi Dosage 2002 00:00:00 Completed [facility] Hep B, Adol or Pedi Dosage 2002 00:00:00 Completed [facility] Hep B, Adol or Pedi Dosage 2002 00:00:00 Completed [facility] Hep B, Adol or Pedi Dosage 2002 00:00:00 Completed [facility] Hep B, Adol or Pedi Dosage 2002 00:00:00 Completed Hep B, Adol or Pedi Dosage 2002 00:00:00 Completed [facility] Hep B, Adol or Pedi Dosage 2002 00:00:00 Completed [facility] Hep B, Adol or Pedi Dosage 2002 00:00:00 Completed [facility] Hep B, Adol or Pedi Dosage 2002 00:00:00 Completed [facility] Hep B, Adol or Pedi Dosage 2002 00:00:00 Completed [facility] Hep B, Adol or Pedi Dosage 2002 00:00:00 Completed [facility] Hep B, Adol or Pedi Dosage 2002 00:00:00 Completed [facility] Hep B, Adol or Pedi Dosage 2002 00:00:00 Completed [facility] Hep B, Adol or Pedi Dosage 2002 00:00:00 Completed [facility] Hep B, Adol or Pedi Dosage 2002 00:00:00 Completed [facility] Hep B, Adol or Pedi Dosage 2002 00:00:00 Completed [facility] Hep B, Adol or Pedi Dosage 2002 00:00:00 Completed [facility] DTAP Unknown Completed [facility] HIB 4 Dose Schedule Unknown Completed [facility] Influenza Virus Vaccine - Whole Unknown Completed [facility] MMR Unknown Completed [facility] Pneumococcal 7 Conjugate, PCV7 (Prevnar7) Unknown Completed [facility] Polio (IPV/OPV) Unknown Completed [facility] Varicella (varivax)(chicken pox) Unknown Completed [facility] TDAP (ADACEL) VACCINE Unknown Completed [facility] HEPATITIS A Unknown Completed [facility] Hep B, Adol or Pedi Dosage Unknown Completed [facility] Meningococcal Vaccine Unknown Completed [facility] Pneumococcal 13 Conjugate, PCV13 (Prevnar 13) Unknown Completed [facility] Influenza Virus Vaccine Quad Nasal (Flumist) Unknown Completed [facility] Meningococcal B, OMV Unknown Completed [facility] Meningococcal Polysaccharide (groups A, C, Y and W-135) conjugate vaccine (MCV4P) Unknown Completed [facility] HPV9 Unknown Completed [facility] Influenza Virus Vaccine Quad .5 mL IM 6+ MO (FLUZONE/FLULAVAL/FL UARIX) Unknown Completed [facility] DTAP Unknown Completed [facility] HIB 4 Dose Schedule Unknown Completed [facility] HEPATITIS A Unknown Completed [facility] Hep B, Adol or Pedi Dosage Unknown Completed [facility] Influenza Virus Vaccine - Whole Unknown Completed [facility] MMR Unknown Completed [facility] Pneumococcal 7 Conjugate, PCV7 (Prevnar7) Unknown Completed [facility] Polio (IPV/OPV) Unknown Completed [facility] Varicella (varivax)(chicken pox) Unknown Completed [facility] TDAP (ADACEL) VACCINE Unknown Completed [facility] Meningococcal Vaccine Unknown Completed [facility] Pneumococcal 13 Conjugate, PCV13 (Prevnar 13) Unknown Completed [facility] Influenza Virus Vaccine Quad Nasal (Flumist) Unknown Completed [facility] Meningococcal B, OMV Unknown Completed [facility] Meningococcal Polysaccharide (groups A, C, Y and W-135) conjugate vaccine (MCV4P) Unknown Completed [facility] HPV9 Unknown Completed [facility] Influenza Virus Vaccine Quad .5 mL IM 6+ MO (FLUZONE/FLULAVAL/FL UARIX) Unknown Completed [facility] Influenza Virus Vaccine - Whole Unknown Completed [facility] TDAP (ADACEL) VACCINE Unknown Completed [facility] Meningococcal Vaccine Unknown Completed [facility] Influenza Virus Vaccine Quad Nasal (Flumist) Unknown Completed [facility] Meningococcal Polysaccharide (groups A, C, Y and W-135) conjugate vaccine (MCV4P) Unknown Completed [facility] DTAP Unknown Completed [facility] HIB 4 Dose Schedule Unknown Completed [facility] HEPATITIS A Unknown Completed [facility] Hep B, Adol or Pedi Dosage Unknown Completed [facility] MMR Unknown Completed [facility] Pneumococcal 7 Conjugate, PCV7 (Prevnar7) Unknown Completed [facility] Polio (IPV/OPV) Unknown Completed [facility] Varicella (varivax)(chicken pox) Unknown Completed [facility] Pneumococcal 13 Conjugate, PCV13 (Prevnar 13) Unknown Completed [facility] Meningococcal B, OMV Unknown Completed [facility] HPV9 Unknown Completed [facility] Influenza Virus Vaccine Quad .5 mL IM 6+ MO (FLUZONE/FLULAVAL/FL UARIX) Unknown Completed [facility] Influenza Virus Vaccine - Whole Unknown Completed [facility] TDAP (ADACEL) VACCINE Unknown Completed [facility] Meningococcal Vaccine Unknown Completed [facility] Influenza Virus Vaccine Quad Nasal (Flumist) Unknown Completed [facility] Meningococcal Polysaccharide (groups A, C, Y and W-135) conjugate vaccine (MCV4P) Unknown Completed [facility] Influenza Virus Vaccine Quad IM, Preserv and ABX Free 6 MO-64 YRS (FLUCELVAX) Unknown Completed [facility] DTAP Unknown Completed [facility] HIB 4 Dose Schedule Unknown Completed [facility] HEPATITIS A Unknown Completed [facility] Hep B, Adol or Pedi Dosage Unknown Completed [facility] MMR Unknown Completed [facility] Pneumococcal 7 Conjugate, PCV7 (Prevnar7) Unknown Completed [facility] Polio (IPV/OPV) Unknown Completed [facility] Varicella (varivax)(chicken pox) Unknown Completed [facility] [facility] Pneumococcal 13 Conjugate, PCV13 (Prevnar 13) Unknown Completed [facility] Meningococcal B, OMV Unknown Completed [facility] HPV9 Unknown Completed [facility] Influenza Virus Vaccine Quad .5 mL IM 6+ MO (FLUZONE/FLULAVAL/FL UARIX) Unknown Completed [facility] TDAP (ADACEL) VACCINE Unknown Completed [facility] Meningococcal Vaccine Unknown Completed [facility] Influenza Virus Vaccine Quad Nasal (Flumist) Unknown Completed [facility] Meningococcal Polysaccharide (groups A, C, Y and W-135) conjugate vaccine (MCV4P) Unknown Completed [facility] Influenza Virus Vaccine Quad IM, Preserv and ABX Free 6 MO-64 YRS (FLUCELVAX) Unknown Completed [facility] DTAP Unknown Completed [facility] HIB 4 Dose Schedule Unknown Completed [facility] HEPATITIS A Unknown Completed [facility] Hep B, Adol or Pedi Dosage Unknown Completed [facility] Influenza Virus Vaccine - Whole Unknown Completed [facility] MMR Unknown Completed [facility] Pneumococcal 7 Conjugate, PCV7 (Prevnar7) Unknown Completed [facility] Polio (IPV/OPV) Unknown Completed [facility] Varicella (varivax)(chicken pox) Unknown Completed [facility] Pneumococcal 13 Conjugate, PCV13 (Prevnar 13) Unknown Completed [facility] Meningococcal B, OMV Unknown Completed [facility] HPV9 Unknown Completed [facility] Influenza Virus Vaccine Quad .5 mL IM 6+ MO (FLUZONE/FLULAVAL/FL UARIX) Unknown Completed [facility] DTAP Unknown Completed [facility] HIB 4 Dose Schedule Unknown Completed [facility] HEPATITIS A Unknown Completed [facility] Hep B, Adol or Pedi Dosage Unknown Completed [facility] Influenza Virus Vaccine - Whole Unknown Completed [facility] MMR Unknown Completed [facility] Pneumococcal 7 Conjugate, PCV7 (Prevnar7) Unknown Completed [facility] Polio (IPV/OPV) Unknown Completed [facility] Varicella (varivax)(chicken pox) Unknown Completed [facility] TDAP (ADACEL) VACCINE Unknown Completed [facility] Meningococcal Vaccine Unknown Completed [facility] Pneumococcal 13 Conjugate, PCV13 (Prevnar 13) Unknown Completed [facility] Influenza Virus Vaccine Quad Nasal (Flumist) Unknown Completed [facility] Meningococcal B, OMV Unknown Completed [facility] Meningococcal Polysaccharide (groups A, C, Y and W-135) conjugate vaccine (MCV4P) Unknown Completed [facility] HPV9 Unknown Completed [facility] Influenza Virus Vaccine Quad .5 mL IM 6+ MO (FLUZONE/FLULAVAL/FL UARIX) Unknown Completed [facility] Influenza Virus Vaccine Quad IM, Preserv and ABX Free 6 MO-64 YRS (FLUCELVAX) Unknown Completed [facility] DTAP Unknown Completed [facility] HIB 4 Dose Schedule Unknown Completed [facility] HEPATITIS A Unknown Completed [facility] Hep B, Adol or Pedi Dosage Unknown Completed [facility] Influenza Virus Vaccine - Whole Unknown Completed [facility] MMR Unknown Completed [facility] Pneumococcal 7 Conjugate, PCV7 (Prevnar7) Unknown Completed [facility] Polio (IPV/OPV) Unknown Completed [facility] Varicella (varivax)(chicken pox) Unknown Completed [facility] TDAP (ADACEL) VACCINE Unknown Completed [facility] Meningococcal Vaccine Unknown Completed [facility] Pneumococcal 13 Conjugate, PCV13 (Prevnar 13) Unknown Completed [facility] Influenza Virus Vaccine Quad Nasal (Flumist) Unknown Completed [facility] Meningococcal B, OMV Unknown Completed [facility] Meningococcal Polysaccharide (groups A, C, Y and W-135) conjugate vaccine (MCV4P) Unknown Completed [facility] HPV9 Unknown Completed [facility] Influenza Virus Vaccine Quad .5 mL IM 6+ MO (FLUZONE/FLULAVAL/FL UARIX) Unknown Completed [facility] Influenza Virus Vaccine Quad IM, Preserv and ABX Free 6 MO-64 YRS (FLUCELVAX) Unknown Completed [facility] DTAP Unknown Completed [facility] HIB 4 Dose Schedule Unknown Completed [facility] HEPATITIS A Unknown Completed [facility] Hep B, Adol or Pedi Dosage Unknown Completed [facility] Influenza Virus Vaccine - Whole Unknown Completed [facility] MMR Unknown Completed [facility] Pneumococcal 7 Conjugate, PCV7 (Prevnar7) Unknown Completed [facility] Polio (IPV/OPV) Unknown Completed [facility] Varicella (varivax)(chicken pox) Unknown Completed [facility] TDAP (ADACEL) VACCINE Unknown Completed [facility] Meningococcal Vaccine Unknown Completed [facility] Pneumococcal 13 Conjugate, PCV13 (Prevnar 13) Unknown Completed [facility] Influenza Virus Vaccine Quad Nasal (Flumist) Unknown Completed [facility] Meningococcal B, OMV Unknown Completed [facility] Meningococcal Polysaccharide (groups A, C, Y and W-135) conjugate vaccine (MCV4P) Unknown Completed [facility] HPV9 Unknown Completed [facility] Influenza Virus Vaccine Quad .5 mL IM 6+ MO (FLUZONE/FLULAVAL/FL UARIX) Unknown Completed [facility] Influenza Virus Vaccine Quad IM, Preserv and ABX Free 6 MO-64 YRS (FLUCELVAX) Unknown Completed [facility] DTAP Unknown Completed [facility] HIB 4 Dose Schedule Unknown Completed [facility] HEPATITIS A Unknown Completed [facility] Hep B, Adol or Pedi Dosage Unknown Completed [facility] Influenza Virus Vaccine - Whole Unknown Completed [facility] MMR Unknown Completed [facility] Pneumococcal 7 Conjugate, PCV7 (Prevnar7) Unknown Completed [facility] Polio (IPV/OPV) Unknown Completed [facility] Varicella (varivax)(chicken pox) Unknown Completed [facility] TDAP (ADACEL) VACCINE Unknown Completed [facility] Meningococcal Vaccine Unknown Completed [facility] Pneumococcal 13 Conjugate, PCV13 (Prevnar 13) Unknown Completed [facility] Influenza Virus Vaccine Quad Nasal (Flumist) Unknown Completed [facility] Meningococcal B, OMV Unknown Completed [facility] Meningococcal Polysaccharide (groups A, C, Y and W-135) conjugate vaccine (MCV4P) Unknown Completed [facility] HPV9 Unknown Completed [facility] Influenza Virus Vaccine Quad .5 mL IM 6+ MO (FLUZONE/FLULAVAL/FL UARIX) Unknown Completed [facility] Influenza Virus Vaccine Quad IM, Preserv and ABX Free 6 MO-64 YRS (FLUCELVAX) Unknown Completed [facility] DTAP Unknown Completed [facility] HIB 4 Dose Schedule Unknown Completed [facility] HEPATITIS A Unknown Completed [facility] Hep B, Adol or Pedi Dosage Unknown Completed [facility] Influenza Virus Vaccine - Whole Unknown Completed [facility] MMR Unknown Completed [facility] Pneumococcal 7 Conjugate, PCV7 (Prevnar7) Unknown Completed [facility] Polio (IPV/OPV) Unknown Completed [facility] Varicella (varivax)(chicken pox) Unknown Completed [facility] TDAP (ADACEL) VACCINE Unknown Completed [facility] Meningococcal Vaccine Unknown Completed [facility] Pneumococcal 13 Conjugate, PCV13 (Prevnar 13) Unknown Completed [facility] Influenza Virus Vaccine Quad Nasal (Flumist) Unknown Completed [facility] Meningococcal B, OMV Unknown Completed [facility] Meningococcal Polysaccharide (groups A, C, Y and W-135) conjugate vaccine (MCV4P) Unknown Completed [facility] HPV9 Unknown Completed [facility] Influenza Virus Vaccine Quad .5 mL IM 6+ MO (FLUZONE/FLULAVAL/FL UARIX) Unknown Completed [facility] Influenza Virus Vaccine Quad IM, Preserv and ABX Free 6 MO-64 YRS (FLUCELVAX) Unknown Completed [facility] DTAP Unknown Completed [facility] HIB 4 Dose Schedule Unknown Completed [facility] HEPATITIS A Unknown Completed [facility] Hep B, Adol or Pedi Dosage Unknown Completed [facility] Influenza Virus Vaccine - Whole Unknown Completed [facility] MMR Unknown Completed [facility] Pneumococcal 7 Conjugate, PCV7 (Prevnar7) Unknown Completed [facility] Polio (IPV/OPV) Unknown Completed [facility] Varicella (varivax)(chicken pox) Unknown Completed [facility] TDAP (ADACEL) VACCINE Unknown Completed [facility] Meningococcal Vaccine Unknown Completed [facility] Pneumococcal 13 Conjugate, PCV13 (Prevnar 13) Unknown Completed [facility] Influenza Virus Vaccine Quad Nasal (Flumist) Unknown Completed [facility] Meningococcal B, OMV Unknown Completed [facility] Meningococcal Polysaccharide (groups A, C, Y and W-135) conjugate vaccine (MCV4P) Unknown Completed [facility] HPV9 Unknown Completed [facility] Influenza Virus Vaccine Quad .5 mL IM 6+ MO (FLUZONE/FLULAVAL/FL UARIX) Unknown Completed [facility] Influenza Virus Vaccine Quad IM, Preserv and ABX Free 6 MO-64 YRS (FLUCELVAX) Unknown Completed [facility] DTAP Unknown Completed [facility] HIB 4 Dose Schedule Unknown Completed [facility] HEPATITIS A Unknown Completed [facility] Hep B, Adol or Pedi Dosage Unknown Completed [facility] Influenza Virus Vaccine - Whole Unknown Completed [facility] MMR Unknown Completed [facility] Pneumococcal 7 Conjugate, PCV7 (Prevnar7) Unknown Completed [facility] Polio (IPV/OPV) Unknown Completed [facility] Varicella (varivax)(chicken pox) Unknown Completed [facility] TDAP (ADACEL) VACCINE Unknown Completed [facility] Meningococcal Vaccine Unknown Completed [facility] Pneumococcal 13 Conjugate, PCV13 (Prevnar 13) Unknown Completed [facility] Influenza Virus Vaccine Quad Nasal (Flumist) Unknown Completed [facility] Meningococcal B, OMV Unknown Completed [facility] Meningococcal Polysaccharide (groups A, C, Y and W-135) conjugate vaccine (MCV4P) Unknown Completed [facility] HPV9 Unknown Completed [facility] Influenza Virus Vaccine Quad .5 mL IM 6+ MO (FLUZONE/FLULAVAL/FL UARIX) Unknown Completed [facility] Influenza Virus Vaccine Quad IM, Preserv and ABX Free 6 MO-64 YRS (FLUCELVAX) Unknown Completed [facility] DTAP Unknown Completed [facility] HIB 4 Dose Schedule Unknown Completed [facility] HEPATITIS A Unknown Completed [facility] Hep B, Adol or Pedi Dosage Unknown Completed [facility] Influenza Virus Vaccine - Whole Unknown Completed [facility] MMR Unknown Completed [facility] Pneumococcal 7 Conjugate, PCV7 (Prevnar7) Unknown Completed [facility] Polio (IPV/OPV) Unknown Completed [facility] Varicella (varivax)(chicken pox) Unknown Completed [facility] TDAP (ADACEL) VACCINE Unknown Completed [facility] Meningococcal Vaccine Unknown Completed [facility] Pneumococcal 13 Conjugate, PCV13 (Prevnar 13) Unknown Completed [facility] Influenza Virus Vaccine Quad Nasal (Flumist) Unknown Completed [facility] Meningococcal B, OMV Unknown Completed [facility] Meningococcal Polysaccharide (groups A, C, Y and W-135) conjugate vaccine (MCV4P) Unknown Completed [facility] HPV9 Unknown Completed [facility] Influenza Virus Vaccine Quad .5 mL IM 6+ MO (FLUZONE/FLULAVAL/FL UARIX) Unknown Completed [facility] Influenza Virus Vaccine Quad IM, Preserv and ABX Free 6 MO-64 YRS (FLUCELVAX) Unknown Completed [facility] DTAP Unknown Completed [facility] HIB 4 Dose Schedule Unknown Completed [facility] HEPATITIS A Unknown Completed [facility] Hep B, Adol or Pedi Dosage Unknown Completed [facility] Influenza Virus Vaccine - Whole Unknown Completed [facility] MMR Unknown Completed [facility] Pneumococcal 7 Conjugate, PCV7 (Prevnar7) Unknown Completed [facility] Polio (IPV/OPV) Unknown Completed [facility] Varicella (varivax)(chicken pox) Unknown Completed [facility] TDAP (ADACEL) VACCINE Unknown Completed [facility] Meningococcal Vaccine Unknown Completed [facility] Pneumococcal 13 Conjugate, PCV13 (Prevnar 13) Unknown Completed [facility] Influenza Virus Vaccine Quad Nasal (Flumist) Unknown Completed [facility] Meningococcal B, OMV Unknown Completed [facility] Meningococcal Polysaccharide (groups A, C, Y and W-135) conjugate vaccine (MCV4P) Unknown Completed [facility] HPV9 Unknown Completed [facility] Influenza Virus Vaccine Quad .5 mL IM 6+ MO (FLUZONE/FLULAVAL/FL UARIX) Unknown Completed [facility] Influenza Virus Vaccine Quad IM, Preserv and ABX Free 6 MO-64 YRS (FLUCELVAX) Unknown Completed [facility] DTAP Unknown Completed [facility] HIB 4 Dose Schedule Unknown Completed [facility] HEPATITIS A Unknown Completed [facility] Hep B, Adol or Pedi Dosage Unknown Completed [facility] Influenza Virus Vaccine - Whole Unknown Completed [facility] MMR Unknown Completed [facility] Pneumococcal 7 Conjugate, PCV7 (Prevnar7) Unknown Completed [facility] Polio (IPV/OPV) Unknown Completed [facility] Varicella (varivax)(chicken pox) Unknown Completed [facility] TDAP (ADACEL) VACCINE Unknown Completed [facility] Meningococcal Vaccine Unknown Completed [facility] Pneumococcal 13 Conjugate, PCV13 (Prevnar 13) Unknown Completed [facility] Influenza Virus Vaccine Quad Nasal (Flumist) Unknown Completed [facility] Meningococcal B, OMV Unknown Completed [facility] Meningococcal Polysaccharide (groups A, C, Y and W-135) conjugate vaccine (MCV4P) Unknown Completed [facility] HPV9 Unknown Completed [facility] Influenza Virus Vaccine Quad .5 mL IM 6+ MO (FLUZONE/FLULAVAL/FL UARIX) Unknown Completed [facility] Influenza Virus Vaccine Quad IM, Preserv and ABX Free 6 MO-64 YRS (FLUCELVAX) Unknown Completed [facility] Vital Signs Vital Name Observation Time Observation Value Comments S ar Body height 2023-12-04 20:11:00 170.2 cm [facility] Body weight 2023-12-04 20:11:00 79.062 kg [facility] BMI 2023-12-04 20:11:00 27.30 kg/m2 [facility] Systolic blood pressure 2023-12-02 10:55:00 131 mm[Hg] [facility] Diastolic blood pressure 2023-12-02 10:55:00 75 mm[Hg] [facility] Heart rate 2023-12-02 10:55:00 70 /min [facility] Body temperature 2023-12-02 10:55:00 36.78 Marcella [facility] Respiratory rate 2023-12-02 10:55:00 18 /min [facility] Body height 2023-12-02 10:55:00 170.2 cm [facility] Body weight 2023-12-02 10:55:00 76.204 kg [facility] BMI 2023-12-02 10:55:00 26.31 kg/m2 [facility] Oxygen saturation in Arterial blood by Pulse oximetry 2023-12-02 10:55:00 100 /min [facility] Systolic blood pressure 2023-03-31 05:10:00 113 mm[Hg] [facility] Diastolic blood pressure 2023-03-31 05:10:00 73 mm[Hg] [facility] Heart rate 2023-03-31 05:10:00 78 /min [facility] Body temperature 2023-03-31 05:10:00 36.61 Marcella [facility] Respiratory rate 2023-03-31 05:10:00 14 /min [facility] Body height 2023-03-31 05:10:00 170.2 cm [facility] Body weight 2023-03-31 05:10:00 74.844 kg [facility] BMI 2023-03-31 05:10:00 25.84 kg/m2 [facility] Oxygen saturation in Arterial blood by Pulse oximetry 2023-03-31 05:10:00 100 /min [facility] Systolic blood pressure 2023-01-22 20:51:00 110 mm[Hg] [facility] Diastolic blood pressure 2023-01-22 20:51:00 70 mm[Hg] [facility] Heart rate 2023-01-22 20:51:00 63 /min [facility] Respiratory rate 2023-01-22 20:51:00 18 /min [facility] Body height 2023-01-22 20:51:00 170.2 cm [facility] Body weight 2023-01-22 20:51:00 73.891 kg [facility] BMI 2023-01-22 20:51:00 25.51 kg/m2 [facility] Oxygen saturation in Arterial blood by Pulse oximetry 2023-01-22 20:51:00 100 /min [facility] Body height 2023-01-16 20:37:00 170.2 cm [facility] Body weight 2023-01-16 20:37:00 76.068 kg [facility] BMI 2023-01-16 20:37:00 26.27 kg/m2 [facility] Systolic blood pressure 2023-01-15 16:48:00 128 mm[Hg] [facility] Diastolic blood pressure 2023-01-15 16:48:00 70 mm[Hg] [facility] Heart rate 2023-01-15 16:48:00 74 /min [facility] Body temperature 2023-01-15 16:48:00 37.11 Marcella [facility] Respiratory rate 2023-01-15 16:48:00 18 /min [facility] Body height 2023-01-15 16:48:00 170.2 cm [facility] Body weight 2023-01-15 16:48:00 74.844 kg [facility] BMI 2023-01-15 16:48:00 25.84 kg/m2 [facility] Oxygen saturation in Arterial blood by Pulse oximetry 2023-01-15 16:48:00 100 /min [facility] Systolic blood pressure 2020-04-10 20:13:00 110 mm[Hg] [facility] Diastolic blood pressure 2020-04-10 20:13:00 58 mm[Hg] [facility] Heart rate 2020-04-10 20:13:00 68 /min [facility] Body temperature 2020-04-10 20:13:00 36.83 Marcella [facility] Respiratory rate 2020-04-10 20:13:00 16 /min [facility] Body height 2020-04-10 20:13:00 170.2 cm [facility] Body weight 2020-04-10 20:13:00 68.125 kg [facility] BMI 2020-04-10 20:13:00 23.52 kg/m2 [facility] Systolic blood pressure 2020-02-04 19:22:00 106 mm[Hg] [facility] Diastolic blood pressure 2020-02-04 19:22:00 62 mm[Hg] [facility] Heart rate 2020-02-04 19:22:00 64 /min [facility] Body temperature 2020-02-04 19:22:00 36.22 Marcella [facility] Respiratory rate 2020-02-04 19:22:00 16 /min [facility] Body height 2020-02-04 19:22:00 170.2 cm [facility] Body weight 2020-02-04 19:22:00 70.262 kg [facility] BMI 2020-02-04 19:22:00 24.26 kg/m2 [facility] Systolic blood pressure 2018-11-20 13:24:00 104 mm[Hg] [facility] Diastolic blood pressure 2018-11-20 13:24:00 65 mm[Hg] [facility] Heart rate 2018-11-20 13:24:00 54 /min [facility] Body temperature 2018-11-20 13:24:00 36.61 Marcella [facility] Respiratory rate 2018-11-20 13:24:00 16 /min [facility] Body height 2018-11-20 13:24:00 165.1 cm [facility] Body weight 2018-11-20 13:24:00 65.318 kg [facility] BMI 2018-11-20 13:24:00 23.96 kg/m2 [facility] Systolic blood pressure 2018-11-20 13:24:00 104 mm[Hg] [facility] Diastolic blood pressure 2018-11-20 13:24:00 65 mm[Hg] [facility] Heart rate 2018-11-20 13:24:00 54 /min [facility] Body temperature 2018-11-20 13:24:00 36.61 Marcella [facility] Respiratory rate 2018-11-20 13:24:00 16 /min [facility] Body height 2018-11-20 13:24:00 165.1 cm [facility] Body weight 2018-11-20 13:24:00 65.318 kg [facility] BMI 2018-11-20 13:24:00 23.96 kg/m2 [facility] Systolic blood pressure 2018-11-18 20:38:00 105 mm[Hg] [facility] Diastolic blood pressure 2018-11-18 20:38:00 67 mm[Hg] [facility] Heart rate 2018-11-18 20:38:00 61 /min [facility] Body temperature 2018-11-18 20:36:00 36.44 Marcella [facility] Respiratory rate 2018-11-18 20:36:00 21 /min [facility] Body height 2018-11-18 20:36:00 165.5 cm [facility] Body weight 2018-11-18 20:36:00 66.4 kg [facility] BMI 2018-11-18 20:36:00 24.24 kg/m2 [facility] Oxygen saturation in Arterial blood by Pulse oximetry 2018-11-18 20:36:00 98 /min [facility] Systolic blood pressure 2018-10-12 16:20:00 106 mm[Hg] [facility] Diastolic blood pressure 2018-10-12 16:20:00 68 mm[Hg] [facility] Heart rate 2018-10-12 16:20:00 64 /min [facility] Body temperature 2018-10-12 16:20:00 36.78 Marcella [facility] Respiratory rate 2018-10-12 16:20:00 20 /min [facility] Body height 2018-10-12 16:20:00 167 cm [facility] Body weight 2018-10-12 16:20:00 63.504 kg [facility] BMI 2018-10-12 16:20:00 22.77 kg/m2 [facility] Systolic blood pressure 2018-10-08 19:54:00 112 mm[Hg] [facility] Diastolic blood pressure 2018-10-08 19:54:00 64 mm[Hg] [facility] Heart rate 2018-10-08 19:54:00 66 /min [facility] Body temperature 2018-10-08 19:54:00 36.89 Marcella [facility] Respiratory rate 2018-10-08 19:54:00 20 /min [facility] Body height 2018-10-08 19:54:00 167 cm [facility] Body weight 2018-10-08 19:54:00 66.707 kg [facility] BMI 2018-10-08 19:54:00 23.92 kg/m2 [facility] Procedures Procedure Date / Time Performed Performing Clinician Source XR ANKLE 3+ VW RIGHT 2023-12-02 11:47:41 Lia Pimentel i [facility] XR FOOT 3+ VW RIGHT 2023-12-02 11:47:41 Rabia Pimentel [facility] POCT TEST 2023-12-02 11:23:00 Rabia Pimentel [facility] RAPID STREP SCREEN FOR GROUP A 2023-03-31 05:18:00 Junie Monae [facility] RAPID INFLUENZA A/B 2023-03-31 05:18:00 Andria Monae [facility] COVID-19 (ID NOW RAPID TESTING) 2023-03-31 05:18:00 Junie Monae [facility] NOTICE OF PRIVACY PRACTICES 2023-03-31 05:06:31 Doctor Unassigned, [place] [facility] CONSENT/REFUSAL FOR DIAGNOSIS AND TREATMENT 2023-03-31 05:05:42 Doctor Unassigned, [place] [facility] XR SPINE THORACIC 3 VW 2023-02-12 17:05:56 Ovidio Schneider [facility] XR LUMBAR SPINE 3 VW 2023-02-12 17:05:28 Soham Schneider [facility] FLU VACC (), 6 MO-64 YRS, .5ML, IM, QUAD (FLUCELVAX) 2023-01-22 21:43:02 Ovidio Schneider [facility] POCT TEST 2023-01-15 17:55:00 Annabel Sanchez [facility] XR SPINE THORACIC 2 VW 2023-01-15 17:27:58 Yousuf Sanchez [facility] XR SHOULDER 2+ VW LEFT 2023-01-15 17:27:58 Yousuf Sanchez [facility] NOTICE OF PRIVACY PRACTICES 2023-01-15 17:26:51 Doctor Unassigned, [place] [facility] CONSENT/REFUSAL FOR DIAGNOSIS AND TREATMENT 2023-01-15 17:26:21 Doctor Unassigned, [place] [facility] ASSIGNMENT OF BENEFITS 2023-01-15 17:25:31 Docto r Unassigned, [place] [facility] CONSENT/REFUSAL FOR DIAGNOSIS AND TREATMENT 2023-01-15 16:43:07 Doctor Unassigned, [place] [facility] GARDASIL 9 (HPV 9V) VACCINE 2020-02-04 19:11:56 Piper Aviles [facility] FLU VACC (), 6+ MONTHS, IM, QUAD 2020-02-04 19:11:56 Piper Aviles [facility] ASSIGNMENT OF BENEFITS 2020-02-04 19:03:00 Docto r Unassigned, [place] [facility] GARDASIL 9 (HPV 9V) VACCINE 2018-11-20 13:13:35 Lashaun Minor [facility] MENINGOCOCCAL B VACCINE, OMV, 2 DOSE, IM 2018-11-20 13:13:35 Mily [facility] ECHO XTHORACIC,CHAYITO ANOM,COMPLETE 2018-11-18 00:00:00 Mike Keys [facility] MENACTRA (MCV4-D) VACCINE 2018-10-12 16:49:57 Sanford Anahi [facility] GARDASIL 9 (HPV 9V) VACCINE 2018-10-12 16:49:57 Sanford Anahi [facility] MENINGOCOCCAL B VACCINE, OMV, 2 DOSE, IM 2018-10-12 16:49:57 Sanford Anahi [facility] LIPID PANEL (19291)(TOTAL CHOLESTEROL, TRIGLYCERIDES, HDL) 2018-10-08 20:52:00 Mily [facility] GC & CHLAMYDIA AMPLIFIED ASSAY 2018-10-08 20:52:00 Mily Lashaun [facility] AUTHORIZATION FOR RELEASE OF PHI 2018-10-08 05:01:00 Doctor Unassigned, [place] [facility] Encounters Start Date/Time End Date/Time Encounter Type Admission Type Attending [facility] Facility Care Department Encounter ID Source 2021-05-15 10:00:39 Outpatient ELCAMPO E[facility] [id number] [facility] 2024-05-10 00:00:00 2024-05-11 10:06:44 Piper Viveros [facility] CORPORATE FITNESS PROGRAM COORDINATOR [facility] .840.114 350.1.13.10 4.2.7.2.[id number] [facility] 2024-05-10 00:00:00 2024-05-10 10:53:13 Ovidio Luque [facility] ..840.114 350.1.13.10 4.2.7.2.[id number] [facility] 2023-12-08 00:00:00 2023-12-08 14:52:53 Letter (Out) Beatriz Chu [facility] 1..840.114 350.1.13.10 4.2.7.2.[id number] [facility] 2023-12-04 15:15:00 2023-12-04 15:44:08 Outpatient R BEATRIZ CHU [facility] [id number] [facility] 2023-12-04 15:15:00 2023-12-04 15:44:08 Office Visit Beatriz Chu [facility] 1..840.114 350.1.13.10 4.2.7.2.[id number] [facility] 2023-12-02 06:00:00 2023-12-02 09:17:00 Emergency X RABIA PIMENTEL WAKILI [facility] ERT [id number] [facility] 2023-12-02 06:00:00 2023-12-02 09:17:00 Emergency Rabia Pimentel [facility] 1..840.114 350.1.13.10 4.2.7.2.[id number] [facility] 2023-05-01 09:00:00 2023-05-01 09:00:00 Outpatient R OVIDIO SCHNEIDER [facility] [id number] [facility] 2023-03-30 23:38:00 2023-03-31 00:21:00 Emergency X Pola MARCIAL [facility] ERT [id number] [facility] 2023-03-30 23:38:00 2023-03-31 00:21:00 Emergency Pola Marcial [facility] 1.2.840.114 350.1.13.10 4.2.7.2.[id number] [facility] 2023-03-06 00:00:00 2023-03-06 00:00:00 Case Management [facility] 1.2.840.114 350.1.13.10 4.2.7.2.[id number] [facility] 2023-02-27 09:30:00 2023-02-27 10:15:00 Ancillary Visit Gaby Malik Craig L [place], Peter [facility] 1.2.840.114 350.1.13.10 4.2.7.2.[id number] [facility] 2023-02-27 09:30:00 2023-02-27 09:30:00 Outpatient R OVIDIO SCHNEIDER [facility] [id number] [facility] 2023-02-25 08:45:00 2023-02-25 09:30:00 Ancillary Visit Georgie Cruz Craig L [facility] 1.2.840.114 350.1.13.10 4.2.7.2.[id number] [facility] 2023-02-12 10:46:43 2023-02-12 23:59:00 Hospital Encounter Ovidio Schneider [facility] 1.2.840.114 350.1.13.10 4.2.7.2.[id number] [facility] 2023-02-12 10:46:19 2023-02-12 23:59:00 Outpatient R OVIDIO SCHNEIDER [facility] [id number] [facility] 2023-02-12 10:46:19 2023-02-12 23:59:00 Hospital Encounter Ovidio Schneider [facility] 1.2840.114 350.1.13.10 4.2.7.2.[id number] [facility] 2023-02-12 10:30:00 2023-02-12 10:45:00 Director Safety Visit 2, Adc Lab Ovidio Schneider [facility] 1.2840.114 350.1.13.10 4.2.7.2.[id number] [facility] 2023-02-12 09:30:00 2023-02-12 10:28:15 Outpatient R BEATRIZ CHU CRAIG [facility] [id number] [facility] 2023-02-12 09:30:00 2023-02-12 10:28:15 Ancillary Visit Mckenna Porter Craig L [facility] 1.84.114 350.1.13.10 4.2.7.2.[id number] [facility] 2023-01-22 14:40:00 2023-01-22 16:02:23 Outpatient R OVIDIO SCHNEIDER [facility] [id number] [facility] 2023-01-22 14:40:00 2023-01-22 16:02:23 Office Visit Ovidio Schneider [facility] 1.84.114 350.1.13.10 4.2.7.2.[id number] [facility] 2023-01-16 15:30:00 2023-01-16 16:00:00 Office Visit Romina Spangler [facility] 1.84.114 350.1.13.10 4.2.7.2.[id number] [facility] 2023-01-16 15:30:00 2023-01-16 15:30:00 Outpatient R CRYS ROMINA [facility] [id number] [facility] 2023-01-15 11:50:00 2023-01-15 13:03:00 Emergency X YOUSUF SANCHEZ [facility] ERT [id number] [facility] 2023-01-15 11:50:00 2023-01-15 13:03:00 Emergency Annabel Sanchezessence [facility] 1.114 350.1.13.10 4.2.7.2.[id number] [facility] 2021-02-27 00:00:00 2021-02-27 00:00:00 Patient Secure Msg Doctor Unassigned, [place] [facility] 1..114 350.1.13.10 4.2.7.2.[id number] [facility] 2020-05-29 14:36:03 2020-05-29 14:56:03 Laboratory Only Lab, Adc Fam Payton Villasenor [facility] Office [address] One ..114 350.1.13.10 4.2.7.2.[id number] [facility] 2020-05-29 14:20:00 2020-05-29 14:20:00 Outpatient R RENEAFELICIALUNACAROLINAS [facility] [id number] [facility] 2020-05-21 00:00:00 2020-05-21 00:00:00 Telephone Renetta Ballard [facility] Office [address] ..114 350.1.13.10 4.2.7.2.[id number] [facility] 2020-05-19 16:48:52 2020-05-19 17:08:52 Laboratory Only Lab, Adc Gurmeet EdwardsRenetta Carrera [facility] Office [address] One ..114 350.1.13.10 4.2.7.2.[id number] [facility] 2020-05-19 17:00:00 2020-05-19 17:00:00 Outpatient R [facility] [id number] [facility] 2020-05-19 00:00:00 2020-05-19 00:00:00 Letter (Out) Doctor Unassigned, [place] [facility] 1..114 350.1.13.10 4.2.7.2.[id number] [facility] 2020-04-10 14:04:31 2020-04-10 14:26:11 Office Visit Piper Aviles [facility] CORPORATE FITNESS PROGRAM COORDINATOR [facility] MATERNAL & CHILD [facility] 1..114 350.1.13.10 4.2.7.2.[id number] [facility] 2020-04-10 14:15:00 2020-04-10 14:15:00 Outpatient R PIPER AVILES [facility] [id number] [facility] 2020-02-04 13:51:05 2020-02-04 14:23:47 Billing Encounter Piper Aviles [facility] CORPORATE FITNESS PROGRAM COORDINATOR [facility] 1..114 350.1.13.10 4.2.7.2.[id number] [facility] 2020-02-04 13:05:41 2020-02-04 14:22:53 Office Visit Piper Aviles [facility] CORPORATE FITNESS PROGRAM COORDINATOR [facility] 1..114 350.1.13.10 4.2.7.2.[id number] [facility] 2020-02-04 13:15:00 2020-02-04 13:15:00 Outpatient R PIPER [place]ILES [facility] [id number] [facility] 2020-02-04 00:00:00 2020-02-04 00:00:00 Orders Only Doctor Unassigned, [place] [facility] 1.2.840.114 350.1.13.10 4.2.7.2.[id number] [facility] 2020-02-03 00:00:00 2020-02-03 00:00:00 Telephone Piper Aviles [facility] CORPORATE FITNESS PROGRAM COORDINATOR [facility] MATERNAL & CHILD [facility] 1.2.840.114 350.1.13.10 4.2.7.2.[id number] [facility] 2018-11-20 08:10:11 2018-11-20 08:33:44 [facility] CORPORATE FITNESS PROGRAM COORDINATOR [facility] 1.2.840.114 350.1.13.10 4.2.7.2.[id number] [facility] 2018-11-20 08:10:11 2018-11-20 08:33:44 Nurse Visit Visit, Grey Flores [facility] CORPORATE FITNESS PROGRAM COORDINATOR [facility] CHILD [facility] 1.2.840.114 350.1.13.10 4.2.7.2.686 [id number] 2018-11-18 15:29:40 2018-11-18 16:16:43 Office Visit Mike Keys [facility] [place] 1.2.840.114 350.1.13.10 4.2.7.2.[id number] [facility] 2018-10-12 11:04:18 2018-10-12 11:45:21 Nurse Visit Visit, [facility] Caldwell [facility] CORPORATE FITNESS PROGRAM COORDINATOR [facility] 1.2.840.114 350.1.13.10 4.2.7.2.[id number] [facility] 2018-10-09 00:00:00 2018-10-09 00:00:00 Telephone Lashaun Minor [facility] CORPORATE FITNESS PROGRAM COORDINATOR [facility] 1.2.840.114 350.1.13.10 4.2.7.2.[id number] [facility] 2018-10-09 00:00:00 2018-10-09 00:00:00 Telephone Anahi Christina [facility] CORPORATE FITNESS PROGRAM COORDINATOR [facility] 1.2.840.114 350.1.13.10 4.2.7.2.[id number] [facility] 2018-10-08 14:25:28 2018-10-08 15:56:48 Office Visit Anahi Christina [facility] CORPORATE FITNESS PROGRAM COORDINATOR [facility] 1.2.840.114 350.1.13.10 4.2.7.2.[id number] [facility] 2018-10-08 00:00:00 2018-10-08 00:00:00 Orders Only Doctor Unassigned, [place] [facility] 1.2.840.114 350.1.13.10 4.2.7.2.[id number] [facility] Results Test Description Test Time Test Comments Results Resul t Comments Source XR FOOT 3+ VW RIGHT 2023-11-16 12:53:04 ORDERING PHYSICIAN: RABIA PIMENTEL THREE VIEWS OF THE RIGHT FOOT. DATE: ?12/02/2023 7:52 AM CLINICAL INDICATIONS: ?FOOT/ANKLE PAIN COMPARISON: ?None. FINDINGS: ?Three views of the right foot demonstrate no evidence for acutefracture, subluxation or destructive osseous lesion. ?No significant softtissue swelling or radiopaque foreign body is identified. [facility] XR ANKLE 3+ VW RIGHT 2023-11-16 12:52:33 ORDERING PHYSICIAN: RABIA PIMENTEL THREE VIEWS OF RIGHT ANKLE. DATE: 12/02/2023 7:52 AM CLINICAL INDICATIONS: RIGHT ANKLE PAIN COMPARISON: None. FINDINGS: Three views of the right ankle demonstrate no evidence for acutefracture, subluxation or a destructive osseous lesion. ?The ankle mortiseis intact. ?The talar dome is unremarkable. ?No significant soft tissueswelling is identified. [facility] [id number] 17:55:00* Test Item Value Reference Range Interpretation Comme nts POCT PREG (test code = 1605) Negative On board controls acceptable with C Line (test code = 3574) Yes POCT PREG LOT # (test code = 3575) [id number] POCT PREG TEST DATE ( test code = 3576) 03-19-2024 Lab Interpretation (test cod e = 69827-2) Normal [facility] XTHORACICHAYITO Bolanos DORIE,[id number] 00:00:00Echocardiogram Report Patient: Sabra Rodgers Date of Study: 11/18/2018 Age: [age] year old Sex: female : 2000 Height: 65.16" (165.5 cm)Weight:66.4 kg (146 lb 6.2 oz)BSA: Body surface area is 1.75 meters squared.Location: OutpatientType: TTEReferring: Lashaun Minor FNP Reading: Mike Keys MD Director Safety: Carisa Mills RDCS Indication: Undiagnosed heart murmur and family history of early onset cardiovascular disease M-Mode EchocardiogramIVSD: 0.64 cmLVIDd: 4.86 cmLVIDs: 3.01 cmLVPWD: 0.67 cmSF: 38 % 2-D ECHOCARDIOGRAMCardiac situs was normal.The atrioventricular and the ventricular arterial relationship is normal.The conotruncus was normal and the great vessels were normally related. Two atrioventricular and two semilunar valves are seen.The left atrial chamber size is normal.The left ventricle chamber size is normal.There is no left ventricular hypertrophy observed.The right atrial cavity size is normal.The right ventricular cavity size is normal.The right ventricle wall thickness is normal.The mitral valve appears normal in structure and function.The tricuspid valve appears normal in structure and function.The aortic valve appears normal in structure and function.The coronary arteries appear normal.The aortic root, transverse and de scending aorta appear normal.The major branches of the aortic arch appear normal. The pulmonic valve appears normal in structure and function.The main pulmonary artery bifurcated normally.The atrial septum appears normal and intact.Indices of left ventricular function were normal.There is no pericardial effusion, vegetations, tumors or thrombi. DOPPLER/COLOR DOPPLERAORTIC VALVE- There is no evidence of aortic insufficiency or stenosis.MITRAL VALVE- There is no mitral regurgitation observed.TRICUSPID VALVE- There is trace tricuspid regurgitation.PULMONIC VALVE- There is no evidence of pulmonary insufficiency or stenosis.Systemic venous return was normal.Normal pulmonary venous return to the left atrium.Normal Doppler profile across descending thoracic aorta. CONCLUSION1. Normal 4 chamber intracardiac anatomy2. No evidence of dilated or hypertrophic cardiomyopathy3. Normal left ventricular function.4. No pericardial effusion MIKE KEYS MD[address], [address] [place] [address] [phone] [facility] XTHORACIC,CHAYITO HAMILTON,[id number] 00:00:00Echocardiogram Report Patient: Sabra Rodgers Date of Study: 11/18/2018 Age: [age] year old Sex: female : 2000 Height: 65.16" (165.5 cm)Weight:66.4 kg (146 lb 6.2 oz)BSA: Body surface area is 1.75 meters squared.Location: OutpatientType: TTEReferring: Lashaun Minor FNP Reading: Mike Keys MD Director Safety: Carisa Mills RDCS Indication: Undiagnosed heart murmur and family history of early onset cardiovascular disease M-Mode EchocardiogramIVSD: 0.64 cmLVIDd: 4.86 cmLVIDs: 3.01 cmLVPWD: 0.67 cmSF: 38 % 2-D ECHOCARDIOGRAMCardiac situs was normal.The atrioventricular and the ventricular arterial relationship is normal.The conotruncus was normal and the great vessels were normally related. Two atrioventricular and two semilunar valves are seen.The left atrial chamber size is normal.The left ventricle chamber size is normal.There is no left ventricular hypertrophy observed.The right atrial cavity size is normal.The right ventricular cavity size is normal.The right ventricle wall thickness is normal.The mitral valve appears normal in structure and function.The tricuspid valve appears normal in structure and function.The aortic valve appears normal in structure and function.The coronary arteries appear normal.The aortic root, transverse and de scending aorta appear normal.The major branches of the aortic arch appear normal. The pulmonic valve appears normal in structure and function.The main pulmonary artery bifurcated normally.The atrial septum appears normal and intact.Indices of left ventricular function were normal.There is no pericardial effusion, vegetations, tumors or thrombi. DOPPLER/COLOR DOPPLERAORTIC VALVE- There is no evidence of aortic insufficiency or stenosis.MITRAL VALVE- There is no mitral regurgitation observed.TRICUSPID VALVE- There is trace tricuspid regurgitation.PULMONIC VALVE- There is no evidence of pulmonary insufficiency or stenosis.Systemic venous return was normal.Normal pulmonary venous return to the left atrium.Normal Doppler profile across descending thoracic aorta. CONCLUSION1. Normal 4 chamber intracardiac anatomy2. No evidence of dilated or hypertrophic cardiomyopathy3. Normal left ventricular function.4. No pericardial effusion MANISH VAUGHAN [address], [address] [place] [address] [phone] [facility] CHLAMYDIA AMPLIFIED [id number] 17:34:00* Test Item Value Reference Range Interpretation [facility] Interpretation (test cod e = 31013-8) Normal [facility] CHLAMYDIA AMPLIFIED [id number] 17:34:00* Test Item Value Reference Range Interpretation Comme [facility] Lab Interpretation (test cod e = 13136-4) Normal [facility] Center[facility]IP[facility] PAN[facility] (28029)(TOTAL CHOLESTEROL, TRIGLYCERIDES, HDL)2018-10-09 06:33:00* Test Item Value Reference Range Interpretation [facility] CHOL (test code = 5234419012) 160 mg/dL 120-200 HDL (test code = 2369747021) 61 mg/dL >50 HDLC RATIO (test code = 7011215189) See_Comment [Automated [employer]] The system which generated this result transmitted reference range: <=4.5. The reference range was not used to interpret this result as normal/abnormal. TRIG (test code = 8079800718) 216 mg/dL 30-170 H LDL CHOL (test code = 82030-6) 56 mg/dL See_Comment [Automated messa ge] The system which generated this result transmitted reference range: <=160. The reference range was not used to interpret this result as normal/abnormal. VLDL (test code = 3143293907) 43 mg/dL 5-60 Lab Interpretation (test code = 64693-1) Abnormal [facility] (55125)(TOTAL CHOLESTEROL, TRIGLYCERIDES, HDL)2018-10-09 06:33:00* Test Item Value Reference Range Interpretation Comme nts CHOL (test code = 8558823726) 160 mg/dL 120-200 HDL (test code = 7824114128) 61 mg/dL >50 HDLC RATIO (test code = 7884997617) See_Comment [Automated messa ge] The system which generated this result transmitted reference range: <=4.5. The reference range was not used to interpret this result as normal/abnormal. TRIG (test code = 6438898433) 216 mg/dL 30-170 H LDL CHOL (test code = 83169-7) 56 mg/dL See_Comment [Automated messa ge] The system which generated this result transmitted reference range: <=160. The reference range was not used to interpret this result as normal/abnormal. VLDL (test code = 4764431321) 43 mg/dL 5-60 Lab Interpretation (test code = 08206-6) Abnormal [facility] Notes Date/Time Note Provider Source 2024-05-11 10:06:40 I am no longer a pediatric provider and have not seen this patient in 3 years. She will need to f/u with her current provider or telegraph inspector. [facility] 2023-12-02 08:29:38 Patient dc home. Follow up with ortho as needed. Verbalized understanding. Signed paper work. Bayron Singh RN [facility] 2023-12-02 05:50:53 Pt arrives in ED wheelchair accompanied by spouse c/o right foot pain that began last night [phone]. States she was taking off her shoe and the foot began cramping. She said she tried to sleep it off and woke up this am and the foot was still hurting, rated 9/10. Nubia Aviles RN [facility] 2023-03-31 00:12:11 Pt given printed and verbal discharge instructions regarding URI, encouraged hydration, Prescriptions provided. Discussed ibuprofen and to take with food to avoid GI distress. Pt verbalized understanding of instructions, pt awake alert oriented, resp reg unlabored, skin w/d, color appropriate for race, moves all ext well,pt encouraged to follow up with pcp. Advised to seek medical attention for new/prolonged/worsening of symptoms. No adverse reaction to meds given in ER noted upon discharge. Awake, alert oriented, resp reg unlabored, skin w/d, pt leaving amb with steady gait, in no apparent distress. NSAW MECHANIC [facility] 2023-03-30 23:09:01 Pt arrives ambulatory to ED reporting that she coughing, feels hot but no fever, says she has been vomiting a lot, & fatigue, x3 days. NSAW MECHANIC Nubia Aviles RN [facility]
--- NOTE | 2024-05-12 22:32 | RAD REPORT ---
EXAMINATION: ONE VIEW CHEST XR CLINICAL INDICATION: CHEST PAIN TECHNIQUE: Frontal chest projection is submitted. Examination is limited by patient positioning and t echnique. COMPARISON: No prior exam. FINDINGS: Mild interstitial prominence seen greatest in the lung bases. No focal consolidation. The heart is up per limit of normal in size. No displaced fractures identified. IMPRESSION: Mild interstitial prominence in the lung bases can be seen in reactive airway disease or viral bronch itis.
[2024-05-12] MEDS ORDERED: KETOROLAC 30 MG/ML INJ ONE (22:57)
[2024-05-12 23:02] LABS: Absolute Basophils 0.1 K/uL (0-0.5); Absolute Eosinophils 0.1 K/uL (0-0.5); Absolute Lymphocytes (CBC) 3.6 K/uL (0.7-4.9); Absolute Monocytes 0.8 K/uL (0.1-1.3); Absolute Neutrophil 3.5 K/uL (1.8-8.0); Basophils % 0.7 % (0-1.3); Eosinophils % 1.8 % (0-4.4); Hematocrit 37.7 % (36.0-45.0); Hemoglobin 12.9 g/dL (12.0-15.0); Lymphocytes % 44.5 % (15.3-44.8); MCH 29.3 pg (27.0-35.0); MCHC 34.2 g/dL (32.0-36.0); MCV 85.8 fL (80-100); MPV 8.2 fL (7.6-11.3); Monocytes % 10.4 % (3.3-12.3); Neutrophils % 42.6 % (41.7-73.7); Nucleated Red Blood Cells % 0.2 % (0-0); Platelets 312 thou/uL (152-406); RBC Red Blood Cell Count 4.39 M/uL (3.86-4.86); Red Cell Distribution Width 13.7 % (12.1-15.2)
[2024-05-12 23:13] LABS: Anion Gap 8.8 mEq/L (5.0-15.0); Potassium 3.8 mEq/L (3.5-5.1)
[2024-05-13 00:19] LABS: Influenza A Ag Negative; Influenza B Ag Negative; SARS-CoV-2 Antigen Rapid Res Negative (Negative)
--- NOTE | 2024-05-13 00:36 | ER ---
Nurse's Notes [facility] Name: Sabra Jeffrey Age: 24 yrs Sex: Female : 2000 Arrival Date: 05/12/2024 Time: 21:16 Bed 18 Private MD: Diagnosis: Chest pain, unspecified Presentation: 05/12 21:50 Chief complaint: Patient states: LT CHEST, DIAPHRAGM PAIN THAT'S WORSE WITH BREATHING dd2 AND MOVEMENT. DENIES COUGH, CONGESTION OR FEVER. Coronavirus screen: At this time, the client does not indicate any symptoms associated with coronavirus-19. Ebola Screen: No symptoms or risks identified at this time. Initial Sepsis Screen: Does the patient meet any 2 criteria? No. Patient's initial sepsis screen is negative. Does the patient have a suspected source of infection? No. Patient's initial sepsis screen is negative. Risk Assessment: Do you want to hurt yourself or someone else? Patient reports no desire to harm self or others. Onset of symptoms was May 10, 2024. 21:50 Method Of Arrival: Ambulatory dd2 21:50 Acuity: GERARDO 3 dd2 Triage Assessment: 21:54 General: Appears in no apparent distress. uncomfortable, Behavior is calm, cooperative, dd2 appropriate for age. Pain: Complains of pain in diaphragm, mid-sternal area and left lateral anterior chest Pain does not radiate. Pain currently is 7 out of 10 on a pain scale. Quality of pain is described as burning, sharp. EENT: No deficits noted. No signs and/or symptoms were reported regarding the EENT system. Neuro: No deficits noted. Ford Agitation-Sedation Scale (RASS): 0 - Alert and Calm Level of Consciousness is awake, alert, obeys commands, Oriented to person, place, time, situation, Appropriate for age. Cardiovascular: Reports chest pain, Patient's skin is warm and dry. Respiratory: No deficits noted. GI: No deficits noted. No signs and/or symptoms were reported involving the gastrointestinal system. : No deficits noted. No signs and/or symptoms were reported regarding the genitourinary system. Derm: No deficits noted. No signs and/or symptoms reported regarding the dermatologic system. Musculoskeletal: Circulation, motion, and sensation intact. Range of motion: intact in all extremities, Reports pain in diaphragm, xiphoid area, mid-sternal area and left lateral anterior chest Pain is 7 out of 10 on a pain scale. 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 - Infectious Disease History:: Denies. - Social history:: Smoking status: Patient/guardian denies using tobacco, the patient reports quitting approximately 1 years ago. Screenin:[address] [facility] ED Fall Risk Assessment (Adult) History of falling in the last 3 months, rg5 including since admission No falls in past 3 months (0 pts) Confusion or Disorientation No (0 pts) Intoxicated or Sedated No (0 pts) Impaired Gait No (0 pts) Mobility Assist Device Used No (0 pt) Altered Elimination No (0 pt) Score/Fall Risk Level 0 - 2 = Low Risk Oriented to surroundings, Maintained a safe environment, Hourly rounding (assess needs \T\ fall precautionary measures) done. Abuse screen: Denies threats or abuse. Nutritional screening: No deficits noted. Tuberculosis screening: No symptoms or risk factors identified. Assessment: 23:43 General: Appears uncomfortable, Behavior is calm, cooperative, appropriate for age. rg5 Pain: Complains of pain in chest. Neuro: Level of Consciousness is awake, alert, obeys commands, Oriented to person, place, time. Cardiovascular: Reports chest pain, Capillary refill < 3 seconds Patient's skin is warm and dry. Rhythm is sinus bradycardia. Respiratory: Airway is patent Trachea midline Respiratory effort is even, unlabored, Respiratory pattern is regular, symmetrical. GI: Abdomen is flat, non-distended, Abd is soft and non tender. : No signs and/or symptoms were reported regarding the genitourinary system. EENT: No deficits noted. Derm: Skin is intact, Skin is dry, Skin is normal, Skin temperature is warm. Musculoskeletal: Circulation, motion, and sensation intact. Range of motion: intact in all extremities. 05/13 00:25 Reassessment: Patient and/or family updated on plan of care and expected duration. Pain rg5 level reassessed. Patient is alert, oriented x 3, equal unlabored respirations, skin warm/dry/pink. Patient states feeling better. 01:00 Reassessment: Patient and/or family updated on plan of care and expected duration. Pain rg5 level reassessed. Patient is alert, oriented x 3, equal unlabored respirations, skin warm/dry/pink. Patient states feeling better. Patient states symptoms have improved. Vital Signs: 05/12 21:50 BP 118 / 58; Pulse 66; Resp 99; Temp 97.8(TE); Weight 79.38 kg; Height 5 ft. 7 in. ; dd2 Pain 7/10; 22:00 BP 119 / 60; Pulse 60; Resp 18; Pulse Ox 99% on R/A; Pain 8/10; rg5 05/13 00:35 BP 117 / 65; Pulse 65; Resp 17; Pulse Ox 99% ; Pain 0/10; rg5 05/12 21:50 Body Mass Index 27.41 (79.38 kg, 170.18 cm) dd2 05/12 21:50 Pain Scale: Adult dd2 22:00 Pain Scale: Adult rg5 05/13 00:35 Pain Scale: Adult rg5 ED Course: 05/12 21:22 Patient arrived in ED. gm2 21:23 [facility] Schilling [facility]C [facility] kb 21:23 Mendez Rondon MD is Attending Physician. kb 21:54 Triage completed. dd2 21:54 Arm band placed on right wrist. dd2 22:00 Patient has correct armband on for positive identification. Bed in low position. Call rg5 light in reach. Side rails up X 1. Door closed. Noise minimized. Warm blanket given. 22:00 No provider procedures requiring assistance completed. Inserted saline lock: 20 gauge rg5 in right antecubital area, using aseptic technique. Blood collected. Flushed with 10 mL NS. 22:22 Sathya Lam, MARIA T is Primary Nurse. rg5 22:26 XRAY Chest (1 view) In Process Unspecified. EDMS 05/13 01:00 Provided Education on: post er care. rg5 01:00 IV discontinued, bleeding controlled, No redness/swelling at site. Pressure dressing rg5 applied. Administered Medications: 05/12 23:00 Drug: Ketorolac IVP 15 mg IVP once Route: IVP; Site: right antecubital; rg5 23:43 Follow up: Response: No adverse reaction; Pain is decreased rg5 Medication: 22:00 VIS not applicable for this client. rg5 Outcome: 05/13 00:36 Discharge ordered by MD. lam 01:00 Discharged to home rg5 01:00 Condition: stable 01:00 Discharge instructions given to patient, Instructed on discharge instructions, follow rg5 up and referral plans. Demonstrated understanding of instructions, follow-up care, 01:17 Patient left the ED. rg5 Signatures: Dispatcher [employer] EDHannah Chauhan, CHILD WELFARE SPECIALIST-C CHILD WELFARE SPECIALIST-Audrey Riddle gm2 Sathya Lam, RN RN rg5 ALEJANDRO MENJIVAR RN RN dd2
--- NOTE | 2024-05-13 00:36 | EDPHYS ---
Physician Documentation [facility] Name: Sabra Jeffrey Age: 24 yrs Sex: Female : 2000 Arrival Date: 05/12/2024 Time: 21:16 Bed 18 Private MD: ED Physician Mendez Rondon HPI: 05/13 00:39 This 24 yrs old Female presents to ER via Ambulatory with complaints of LEFT SIDE ABD kb PAIN. 00:39 Pt is a 24 year old female who presents for left lower chest pain that started 3 days kb ago. Aggravated by movement and deep breath. Alleviated by rest. Denies cough, congestion, fever. 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 - Infectious Disease History:: Denies. - Social history:: Smoking status: Patient/guardian denies using tobacco, the patient reports quitting approximately 1 years ago. ROS: 22:57 Constitutional: As per HPI kb Exam: 22:57 Constitutional: This is a well developed, well nourished patient who is awake, alert, kb and in no acute distress. Head/Face: Normocephalic, atraumatic. ENT: Moist Mucous membranes Cardiovascular: Regular rate Respiratory: Respirations even and unlabored. No increased work of breathing. Talking in full sentences Abdomen/GI: Soft, non-tender. No distention Skin: Warm, dry with normal turgor. Normal color. MS/ Extremity: Pulses equal, no cyanosis. Neurovascular intact. Full, normal range of motion. Neuro: Awake and alert, GCS 15, oriented to person, place, time, and situation. 22:57 ECG was reviewed by the Attending Physician. Vital Signs: 21:50 BP 118 / 58; Pulse 66; Resp 99; Temp 97.8(TE); Weight 79.38 kg; Height 5 ft. 7 in. ; dd2 Pain 7/10; 22:00 BP 119 / 60; Pulse 60; Resp 18; Pulse Ox 99% on R/A; Pain 8/10; rg5 05/13 00:35 BP 117 / 65; Pulse 65; Resp 17; Pulse Ox 99% ; Pain 0/10; rg5 05/12 21:50 Body Mass Index 27.41 (79.38 kg, 170.18 cm) dd2 05/12 21:50 Pain Scale: Adult dd2 22:00 Pain Scale: Adult rg5 05/13 00:35 Pain Scale: Adult rg5 MDM: 05/12 21:23 Medical Screening Exam initiated kb 05/13 00:35 Data reviewed: vital signs, nurses notes. kb 00:39 Differential diagnosis: muscle strain, pleurisy, arrhythmia, acute mi, pe. Test kb considered but Not performed: CT: ct chest considered but ddimer negative. Historians other than the Patient: Spouse/Significant Other: significant other. Counseling: I had a detailed discussion with the patient and/or guardian regarding the historical points, exam findings, and any diagnostic results supporting the discharge/admit diagnosis, lab results, radiology results, the need for outpatient follow up, a family practitioner, to return to the emergency department if symptoms worsen or persist or if there are any questions or concerns that arise at home. 05/12 22:09 Order name: Basic Metabolic Panel; Complete Time: 23:18 kb 05/12 22:09 Order name: CBC with Diff; Complete Time: 23:07 kb 05/12 22:09 Order name: D-Dimer; Complete Time: 23:07 kb 05/12 22:09 Order name: Troponin HS; Complete Time: 23:18 kb 05/12 22:34 Order name: COVID-19 Ag + Flu A+B Ag; Complete Time: 00:33 kb 05/12 22:09 Order name: XRAY Chest (1 view); Complete Time: 22:34 kb 05/12 22:09 Order name: Cardiac monitoring; Complete Time: 22:51 kb 05/12 22:09 Order name: EKG - Nurse/Tech; Complete Time: 22:51 kb 05/12 22:09 Order name: IV Saline Lock; Complete Time: 22:51 kb 05/12 22:09 Order name: Labs collected and sent; Complete Time: 22:51 kb 05/12 22:09 Order name: O2 Per Protocol; Complete Time: 22:51 kb 05/12 22:09 Order name: O2 Sat Monitoring; Complete Time: 22:51 kb EC/26 22:57 Rate is 59 beats/min. Rhythm is regular. QRS [place] is Normal. MA interval is normal at kb 172 msec. QRS interval is normal at 90 msec. QT interval is normal at 411 msec. Administered Medications: 23:00 Drug: Ketorolac IVP 15 mg IVP once Route: IVP; Site: right antecubital; rg5 23:43 Follow up: Response: No adverse reaction; Pain is decreased rg5 Disposition: 05/13 03:19 Co-signature as Attending Physician, Mendez Rondon MD I agree with the assessment sp4 and plan of care. I reviewed the patient's care provided by the Advanced Practice Provider and agree with the diagnosis and treatment plan. Disposition Summary: 05/13/24 00:36 Discharge Ordered Notes: Location: Home kb Condition: Stable kb Diagnosis - Chest pain, unspecified kb Followup: kb - With: Emergency Department - When: As needed - Reason: Worsening of condition Followup: kb - With: Private Physician - When: 2 - 3 days - Reason: Recheck today's complaints, Continuance of care, Re-evaluation by your physician Discharge Instructions: - Discharge Summary Sheet kb - Chest Wall Pain, [id number] kb - Nonspecific Chest Pain, Adult, [id number] kb Forms: - Work release form kb - Medication Reconciliation Form kb - Antibiotic Education kb - Prescription Opioid Use kb - Patient Portal Instructions kb - Leadership Thank You Letter kb Signatures: Dispatcher [employer] Hannah Edmondson, MO-C MACHINIST AUTOMOTIVE-Mendez Ventura MD MD sp4 Sathya Lam RN RN rg5 ALEJANDRO MENJIVAR RN RN dd2
[2024-05-13 01:22] VITALS: TEMP 97.8
[2024-05-13 01:24] VITALS: BP 119/60; O2SAT 99
--- NOTE | 2024-05-13 16:44 | EKG ---
Test Date: 2024-05-12 Test Time: 22:49:36 Coding Spec: SANDHYA MEASUREMENT RESULTS: Intervals: Rate: 59 MN: 172 QRSD: 90 QT: 416 QTc: 411 [place]: P: 46 MN: 172 QRS: 54 T: 52 INTERPRETIVE STATEMENTS: Sinus bradycardia Otherwise normal ECG No previous ECG available for comparison Electronically Signed On 05-13-24 16:43:07 AERIAL APPLICATOR PILOT by Alok Carranza
== END 2024-05-13 01:17 | disposition home or self-care (01) ==
LOC: ER 21:16
DX: R07.9 Chest pain, unspecified (principal); Z11.52 Encounter for screening for COVID-19
CPT/HCPCS: 36415; 71045; 80048; 84484; 85025; 85379; 87428; 93005; 96374; 99284